=== PATIENT | male | born 1930 | race Caucasian/White ===

== ENCOUNTER → 2017-07-07 | Outpatient (CLI) | payer MEDICARE, OTHER ==
[~2017-07-07] VITALS: Ht 180.3 cm; Wt 92.5 kg
[~2017-07-07] MED LIST: CATHETER FLUSH 10 ML SYR IV PRN
[2017-07-07 12:55] VITALS: BP 167/97
--- NOTE | 2017-07-07 18:11 | STRESS TEST ---
DATE OF SERVICE: 07/07/2017 EXERCISE MYOVIEW STRESS TEST REFERRING PHYSICIAN: Dr. Jerman Park. Baseline heart rate is 68. Baseline blood pressure 167/97. Baseline EKG is sinus rhythm with no ischemic changes. In summary, the patient was injected with 10.44 mCi of technetium-99 Myoview and the resting images were obtained. Then, the patient started exercising with a baseline heart rate, blood pressure and EKG mentioned above. The patient was able to exercise for a total of 3 minutes on standard Lance protocol. With peak exercise level, EKG was showing minimal nondiagnostic changes. Blood pressure at peak was 193/91. During recovery, heart rate and blood pressure returned to baseline. EKG returned to baseline. The resting and stressed images were reviewed and compared in the short axis, horizontal long axis, and vertical long axis views. Review of the images showed diaphragmatic attenuation with mild decreased uptake involving the inferior wall and inferolateral wall with mild reversibility, there is significant increase in the stress score of 16. SSS and SDS of 6 probably due to the diaphragmatic attenuation. TID value 0.96. On the gated images, the left ventricle appeared to be in normal size with hypokinesia of the inferior wall. Calculated ejection fraction 49%. CONCLUSION: 1. Poor exercise tolerance. A total of 3 minutes on standard Lance protocol, total of 4.6 METS achieving 89% of maximum expected heart rate. 2. Nondiagnostic EKG changes with exercise, returned to baseline during recovery. 3. Mild hypertensive response to exercise, returned to baseline during recovery. 4. Diaphragmatic attenuation with mild ischemia involving the whole inferior wall and inferolateral wall. 5. Normal left ventricular size with mild hypokinesia of the inferior wall. Calculated ejection fraction 49%. Job ID: [id number] DocumentID: [id number] Dictated Date: 07/07/2017 14:38:08 Bottom Crane Operator Date: 07/07/2017 18:10:25 Dictated By: NUZHAT CORTES MD
== END ==
LOC: CARD 10:14
PROVIDERS: ATTEND Internal Medicine Cardiovascular Disease
DX: R07.89 Other chest pain (principal); I25.10 Atherosclerotic heart disease of native coronary artery without angina pectoris; I10 Essential (primary) hypertension; E78.2 Mixed hyperlipidemia; R06.09 Other forms of dyspnea
CPT/HCPCS: 78452; 93017; 93306

== ENCOUNTER 2017-07-10 08:33 | Day surgery (SDC) | payer MEDICARE ==
[2017-07-10] VITALS (8 sets, daily range): BP systolic 144–182; BP diastolic 80–94
[~2017-07-10] VITALS: Ht 180.3 cm; Wt 92.1 kg
[2017-07-10] MEDS ORDERED: ASPIRIN 81 MG CHEW (CHILDREN'S ASA) PO ONE (08:45)
[2017-07-10 08:52] LABS: BASOPHILS % (AUTO) 0 % (0-10); EOSINOPHILS # (AUTO) 0.2 10^3/uL (0.0-0.3); EOSINOPHILS % (AUTO) 4 % (0-10); HEMATOCRIT 41 % (40-54); HEMOGLOBIN 14.2 G/DL (13.3-17.7); LYMPHOCYTES # (AUTO) 1.2 X 10^3 (1.0-4.0); LYMPHOCYTES % (AUTO) 20 % (12-44); MEAN CORPUSCULAR HEMOGLOBIN 33 PG (25-34); MEAN CORPUSCULAR HGB CONC 35 G/DL (32-36); MEAN CORPUSCULAR VOLUME 94 FL (80-99); MONOCYTES # (AUTO) 0.4 X 10^3 (0.0-1.0); MONOCYTES % (AUTO) 7 % (0-12); NEUTROPHILS % (AUTO) 69 % (42-75); PLATELET COUNT 151 10^3/uL (130-400); RED BLOOD COUNT 4.36 10^6/uL (4.35-5.85); RED CELL DISTRIBUTION WIDTH 12.8 % (10.0-14.5); WHITE BLOOD COUNT 5.8 10^3/uL (4.3-11.0)
[2017-07-10 09:02] LABS: PROTHROMBIN TIME PATIENT 13.6 SEC (12.2-14.7)
[2017-07-10 09:12] LABS: ALANINE AMINOTRANSFERASE 26 U/L (0-55); ALKALINE PHOSPHATASE 77 U/L (40-136); BILIRUBIN,TOTAL 0.8 MG/DL (0.1-1.0); BUN/CREATININE RATIO 16; CALCIUM 9.5 MG/DL (8.5-10.1); CARBON DIOXIDE 23 MMOL/L (21-32); CHLORIDE 106 MMOL/L (98-107); CREATININE SERUM 1.15 MG/DL (0.60-1.30); GFR ESTIMATED 60; GLUCOSE 96 MG/DL (70-105); MAGNESIUM 2.2 MG/DL (1.8-2.4); POTASSIUM 4.2 MMOL/L (3.6-5.0); SODIUM 142 MMOL/L (135-145); TOTAL PROTEIN 7.3 GM/DL (6.4-8.2)
[2017-07-10 09:18] LABS: MYOGLOBIN SERUM 84.7 NG/ML (10.0-92.0)
--- NOTE | 2017-07-10 09:24 | Diagnostic Imaging Report ---
INDICATION: Chest pain COMPARISON: None available TECHNIQUE: Single frontal radiograph of the chest dated 07/10/2017. FINDINGS: The cardiac silhouette is upper limits of normal in size. No significant pulmonary vascular congestion. The lungs are clear. No pleural effusion. No pneumothorax. No acute osseous abnormality. IMPRESSION: Borderline cardiomegaly without overt congestive heart failure or additional superimposed acute cardiopulmonary abnormality. Dictated by: Dictated on workstation # [id number]
[2017-07-10] MEDS ORDERED: NITR0.4T39 SL (09:25)
[2017-07-10] MEDS ORDERED: ATOR40TA PO (09:29)
[2017-07-10] MEDS ORDERED: VITA150T PO (09:29)
[2017-07-10] MEDS ORDERED: LEVO100T7 PO (09:29)
[2017-07-10] MEDS ORDERED: OMEP20CA12 PO (09:29)
[2017-07-10] MEDS ORDERED: AMLO5TAB4 PO (09:29)
[2017-07-10] MEDS ORDERED: METO100T6 PO (09:29)
[2017-07-10] MEDS ORDERED: MULT-593 PO (09:29)
[2017-07-10] MEDS ORDERED: ASPI81TA55 PO (09:29)
[2017-07-10] MEDS ORDERED: TERA5CAP3 PO (09:29)
[2017-07-10] MEDS ORDERED: CHOL10003 PO (09:29)
--- NOTE | 2017-07-10 10:06 | ED Chest Pain ---
General Chief Complaint: Chest Pain Stated Complaint: CATH Nursing Triage Note: ARRIVED VIA AMB TO ROOM 05. COMPLAINS OF CHEST PAIN WITH SOA STARTING AT APX 0200. STATES HE TOOK X3 NITRO THAT DID HELP HIS PAIN. PT HAD A STRESS TEST ON WED AND IS SCHEDULED FOR A CATH ON WED. Nursing Sepsis Screen: No Definite Risk Source: patient Exam Limitations: no limitations History of Present Illness Date Seen by Provider: Jul 10, 2017 Time Seen by Provider: 08:37 Initial Comments Here with report of chest pain centrally that is associated with shortness of air. Started at about 2 a.m. and has persisted for a couple of hours. He did take 3 nitroglycerin and this did help his pain. Currently he is pain-free. He had abnormal stress test last Wednesday and scheduled for heart catheterization next Wednesday. Heart doctor is Dr. Ruiz. Reports taking his medications as directed. He did take aspirin yesterday but none this morning. States he was previously on blood thinners for a blood clot in his leg but had blood in his stool so he stopped those. Timing/Duration: 4-6 hours, changing over time, resolved prior to arrival Severity/Quality: moderate, pressure Location: central Radiation: no radiation Activities at Onset: sleep Prior CP/Workup: cardiac cath ASA po OPTICAL DISPENSER: Yes NTG SL OPTICAL DISPENSER: Yes Associated Symptoms: No abdominal pain, No back pain, No diaphoresis, No dizziness, No fatigue, No fever/chills, No nausea/vomiting, shortness of breath , No weakness Allergies and Home Medications Allergies Coded Allergies: No Known Allergies (Unverified Allergy, Unknown, 07/07/17) Home Medications Amlodipine Besylate 5 Mg Tablet, 5 MG PO DAILY, (Reported) Aspirin 81 Mg Tablet.dr, 81 MG PO, (Reported) Atorvastatin Calcium 40 Mg Tablet, 40 MG PO, (Reported) Cholecalciferol (Vitamin D3) 1,000 Unit Tablet, 1,000 UNIT PO, (Reported) Levothyroxine Sodium 100 Mcg Tablet, 100 MCG PO, (Reported) Metoprolol Succinate 100 Mg Tab.er.24h, 100 MG PO DAILY, (Reported) Multivitamin with Minerals 1 Each Tablet, 1 EACH PO, (Reported) Nitroglycerin 0.4 Mg Tab.subl, 0.4 MG SL UD PRN for CHEST PAIN, (Reported) Omeprazole 20 Mg Capsule.dr, 20 MG PO, (Reported) Terazosin HCl 5 Mg Capsule, 5 MG PO, (Reported) Vitamin B Complex & Vit C No.4 150 Mg Tablet, 150 MG PO, (Reported) Review of Systems Constitutional: see HPI, No chills, No fever EENTM: No Symptoms Reported Respiratory: See HPI Cardiovascular: See HPI Gastrointestinal: No Symptoms Reported Genitourinary: No Symptoms Reported All Other Systems Reviewed Negative Unless Noted: Yes Past Kupblfp-Tpepve-Jjppke Hx Patient Social History Alcohol Use: Denies Use Recreational Drug Use: No Smoking Status: Never a Smoker Recent Foreign Travel: No Contact w/Someone Who Travel: No Recent Infectious Disease Expo: No Recent Hopitalizations: No Surgeries History of Surgeries: Yes (CARDIAC CATH) Surgeries: Coronary Stent Respiratory History of Respiratory Disorde: No Cardiovascular History of Cardiac Disorders: Yes Cardiac Disorders: Deep Vein Thrombosis, Hypertension Neurological History of Neurological Disord: No Genitourinary History of Genitourinary Disor: No Gastrointestinal History of Gastrointestinal Di: No Musculoskeletal History of Musculoskeletal Dis: No Endocrine History of Endocrine Disorders: No HEENT History of HEENT Disorders: No Cancer History of Cancer: No Psychosocial History of Psychiatric Problem: No Blood Transfusions History of Blood Disorders: No Reviewed Nursing Assessment Reviewed/Agree w Nursing PMH: Yes Family Medical History Significant Family History: No Pertinent Family Hx Physical Exam Vital Signs Vital Signs - First Documented 07/10/17 08:33 Temp 98.0 Pulse 70 Resp 18 B/P (MAP) 164/89 (114) Pulse Ox 98 Capillary Refill : Less Than 3 Seconds General Appearance: No Apparent Distress, WD/WN HEENT: PERRL/EOMI, Pharynx Normal Neck: Non Tender, Supple Respiratory: Lungs Clear, Normal Breath Sounds Cardiovascular: Regular Rate, Rhythm, No Murmur, Normal Peripheral Pulses Gastrointestinal: Non Tender, Soft Extremity: Normal Range of Motion, Non Tender Neurologic/Psychiatric: Alert, Oriented x3 Skin: Normal Color, Warm/Dry Progress/Results/Core Measures Results/Orders Lab Results Laboratory Tests Test 07/10/17 08:45 Range/Units White Blood Count 5.8 4.3-11.0 10^3/uL Red Blood Count 4.36 4.35-5.85 10^6/uL Hemoglobin 14.2 13.3-17.7 G/DL Hematocrit 41 40-54 % Mean Corpuscular Volume 94 80-99 FL Mean Corpuscular Hemoglobin 33 25-34 PG Mean Corpuscular Hemoglobin Concent 35 32-36 G/DL Red Cell Distribution Width 12.8 10.0-14.5 % Platelet Count 151 130-400 10^3/uL Mean Platelet Volume 10.0 7.4-10.4 FL Neutrophils (%) (Auto) 69 42-75 % Lymphocytes (%) (Auto) 20 12-44 % Monocytes (%) (Auto) 7 0-12 % Eosinophils (%) (Auto) 4 0-10 % Basophils (%) (Auto) 0 0-10 % Neutrophils # (Auto) 4.0 1.8-7.8 X 10^3 Lymphocytes # (Auto) 1.2 1.0-4.0 X 10^3 Monocytes # (Auto) 0.4 0.0-1.0 X 10^3 Eosinophils # (Auto) 0.2 0.0-0.3 10^3/uL Basophils # (Auto) 0.0 0.0-0.1 10^3/uL Prothrombin Time 13.6 12.2-14.7 SEC INR Comment 1.0 0.8-1.4 Activated Partial Thromboplast Time 30 24-35 SEC Sodium Level 142 135-145 MMOL/L Potassium Level 4.2 3.6-5.0 MMOL/L Chloride Level 106 98-107 MMOL/L Carbon Dioxide Level 23 21-32 MMOL/L Anion Gap 13 5-14 MMOL/L Blood Urea Nitrogen 18 7-18 MG/DL Creatinine 1.15 0.60-1.30 MG/DL Estimat Glomerular Filtration Rate 60 BUN/Creatinine Ratio 16 Glucose Level 96 70-105 MG/DL Calcium Level 9.5 8.5-10.1 MG/DL Magnesium Level 2.2 1.8-2.4 MG/DL Total Bilirubin 0.8 0.1-1.0 MG/DL Aspartate Amino Transf (AST/SGOT) 34 5-34 U/L Alanine Aminotransferase (ALT/SGPT) 26 0-55 U/L Alkaline Phosphatase 77 40-136 U/L Myoglobin 84.7 10.0-92.0 NG/ML Troponin I < 0.30 <0.30 NG/ML Total Protein 7.3 6.4-8.2 GM/DL Albumin 4.0 3.2-4.5 GM/DL My Orders Orders - MELECIO MEADE MD Cbc With Automated Diff (07/10/17 08:38) Magnesium (07/10/17 08:38) Chest 1 View, Ap/Pa Only (07/10/17 08:38) Ekg Tracing (07/10/17 08:38) Cardiac Profile 1 (07/10/17 08:38) Comprehensive Metabolic Panel (07/10/17 08:38) Myoglobin Serum (07/10/17 08:38) Protime With Inr (07/10/17 08:38) Partial Thromboplastin Time (07/10/17 08:38) O2 (07/10/17 08:38) Monitor-Rhythm Ecg Trace Only (07/10/17 08:38) Lipid Panel (07/11/17 06:00) Aspirin Chewable Tablet (Baby Aspirin Ch (07/10/17 08:45) Saline Lock/Iv-Start (07/10/17 08:38) Medications Given in ED Current Medications Medications Dose Ordered Sig/Vinh Route Start Time Stop Time Status Last Admin Dose Admin Aspirin 324 mg ONCE ONCE PO 07/10/17 08:45 07/10/17 08:46 DC 07/10/17 08:53 324 MG Vital Signs/I&O Vital Sign - Last 12Hours 07/10/17 08:33 Temp 98.0 Pulse 70 Resp 18 B/P (MAP) 164/89 (114) Pulse Ox 98 Blood Pressure Mean: 114 Progress Note : Progress Note Seen and evaluated. IV, labs, EKG and chest x-ray ordered. ASA 324 mg by mouth ordered as he has not had aspirin today. No current chest pain so no nitroglycerin needed. Monitor patient. I did discuss the case with Dr. Ruiz at 0946. He will take him to the catheter lab this morning from the ER with admission to likely follow. Labs, EKG and chest x-ray do not show any significant findings. Remains pain free. Findings and concerns discussed with patient and family who agree. To go to catheter lab from the ER. Patient and family agree with plan. ECG Initial ECG Impression Date: Jul 10, 2017 Initial ECG Impression Time: 08:39 Initial ECG Rate: 67 Initial ECG Rhythm: Normal Sinus Initial ECG Impression: Normal Initial ECG Comparisson: No Previous ECG Available Comment Sinus rhythm with leftward axis. No evidence of ST elevation [place]. No previous available for comparison. Interpreted by me. Diagnostic Imaging Diagonstic Imaging: Xray Plain Films/CT/US/NM/MRI: chest Comments VIA [facility]. [place], [place] NAME: JAILENE WILKERSON [facility] REC#: [id number] PT STATUS: REG ER : 1930 PHYSICIAN: MELECIO MEADE MD ADMIT DATE: 07/10/17/ER Draft Date of Exam:07/10/17 CHEST 1 VIEW, AP/PA ONLY INDICATION: Chest pain COMPARISON: None available TECHNIQUE: Single frontal radiograph of the chest dated 07/10/2017. FINDINGS: The cardiac silhouette is upper limits of normal in size. No significant pulmonary vascular congestion. The lungs are clear. No pleural effusion. No pneumothorax. No acute osseous abnormality. IMPRESSION: Borderline cardiomegaly without overt congestive heart failure or additional superimposed acute cardiopulmonary abnormality. Dictated on workstation # [id number] Dict: 07/10/17 0913 Trans: 07/10/17 0924 [facility] [id number] Interpreted by: JOSEE ELLIS MD Electronically signed by: Reviewed: Reviewed by Me Departure Communication (Admissions) Time/Spoke to Admitting Phy: 09:46 Impression Impression: Primary Impression: Chest pain Qualified Codes: R07.9 - Chest pain, unspecified Disposition: ADMITTED INPATIENT Condition: Stable Admissions Decision to Admit Reason: Admit from ER (General) Decision to Admit/Date: Jul 10, 2017 Time/Decision to Admit Time: 09:46 Departure-Patient Inst. Referrals: OKSANA JOHNSON MD (PCP/Family) Primary Care Physician MELECIO MEADE MD Jul 10, 2017 10:06
[2017-07-10] MEDS ORDERED: fentaNYL INJECTION 100 MCG/2 ML AMP ONE (10:34)
[2017-07-10] MEDS ORDERED: HEParin (CATH LAB) 2,000 ML IV ONE (10:34)
[2017-07-10] MEDS ORDERED: LIDOCAINE 1% INJ 50 ML (XYLOCAINE) VIAL ONE (10:34)
[2017-07-10] MEDS ORDERED: MIDAZOLAM 5 MG/5 ML (VERSED) VIAL ONE (10:34)
[2017-07-10] MEDS ORDERED: NS IV 1000 ML 1,000 ML ONE (10:34)
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
--- NOTE | 2017-07-10 10:59 | Cardiac Procedure Note-CS/ASA ---
Pre-Procedure Note Pre-Op Procedure Note H&P Reviewed The H&P was reviewed, patient examined and no changes noted. Date H&P Reviewed: Jul 10, 2017 Time H&P Reviewed: 10:59 Conscious Sedation Pre-Proced Time Reviewed: :59 ASA Class: 3 Airway Mallampati Classification: ([place] appropriate class) I. II. III, IV Lungs Heart ASA score ASA 1: a normal healthy patient ASA 2: a patient with a mild systemic disease (mid diabetes, controlled hypertension, obesity x ASA 3: a patient with a severe systemic disease that limits activity (angina , COPD, prior Myocardial infarction) ASA 4: a patient with an incapacitating disease that is a constant threat to life (CHF, renal failure) ASA 5: a moribund patient not expected to survive 24 hrs. (ruptured aneurysm) ASA 6: a declared brain patient whose organs are being harvested. For emergent operations, add the letter E after the classification Grade 3 Sedation Plan: Analgesia, Amnesia, Plan communicated to team members, Discussed options with patient/fam, Discussed risks with patient/fam Note The patient is an appropriate candidate to undergo the planned procedure, sedation, and anesthesia. The patient immediately re-assessed prior to indication. NUZHAT CORTES MD Jul 10, 2017 10:59
[2017-07-10] MEDS ORDERED: NS IV 1000 ML 1,000 ML IV SCH (11:24)
--- NOTE | 2017-07-10 11:27 | Discharge Inst-Post CATH ---
Discharge Inst-CATH Post Cardiac Cath D/C Inst Follow Up/Plan Continue on isosorbide and use sublingual nitroglycerin as needed for chest pain Appointment with Dr. Ruiz's office in 2-4 weeks CARDIAC CATH DISCHARGE INSTRUCTIONS *Hold Metformin for 48 hours post heart cath. ACTIVITY * Go Home directly and rest. * Limit activity of the leg (or wrist if it was used) for 7 days including aerobics, swimming, jogging, bicycling, etc. * Restrict stair-climbing for 7 days if possible, if not, climb up with your non -cath leg, then bring together on the same step. * Avoid lifting, pushing, pulling or excessive movement of the affected extremity for 7 days. * Customary sexual activity may be resumed after 2 days-use caution not to use a position that strains or causes pain to the affected extremity. * No driving for 24 hours. * NO SMOKING. * Avoid straining for bowel movements for 7 days. * Gentle walking on level ground is allowed. * Returning to work will depend on the type of procedure and the results. Your doctor will discuss this with you. CALL YOUR DOCTOR FOR ANY OF THE FOLLOWING: *If bleeding from the puncture site occurs- Apply gentle pressure to site with clean cloth and call your doctor or EMS. * If a knot or lump forms under the skin, increases in size, or causes pain. * If bruising appears to be worsening or moving further down your leg instead of disappearing. * Temperature above 101 F. CARE OF YOUR GROIN INCISION; * Bruising or purple discoloration of the skin near the puncture site is common. * You may shower only, no bathtub bathing for 5 days. Be careful to avoid slipping as your leg may feel stiff. * If a closure device was used on your femoral artery, please see the attached guide regarding care of the device and your leg. * REMOVE the dressing from your groin the next day after your procedure in the shower. CARE OF YOUR WRIST INCISION; * Bruising or purple discoloration of the skin near the puncture site is common. * You may shower. * DO NOT submerge wrist. * Remove dressing in 24 hours. NUZHAT RUIZ MD Jul 10, 2017 11:27
[2017-07-10] MEDS ORDERED: PATIENT MAY USE OWN MEDS, ALL PO SCH (11:30)
--- NOTE | 2017-07-10 11:32 | Cardiac Cath Report ---
Cardiac Cath Report Physician (s)/Measurement Specialist (s) Physician NUZHAT CORTES MD Pre-Procedure Diagnosis Pre-Procedure Diagnosis: unstable angina Post-Procedure Note Procedure Start Date: Jul 10, 2017 Name of Procedure: Left heart catheterization Findings/Procedure Note PROCEDURE NOTE: After explaining the procedure to the patient, all pros and cons were explained, all questions were answered. The patient signed the consent and then she was placed on the cardiac catheterization laboratory. The patient was placed on the cardiac catheterization laboratory. Groin was prepped SL fashion local anesthesia was used. Sheath placed in the right femoral artery. Chely right and left catheter were used to access the coronary system. Chely right was used to access the left ventricular cavity. Left ventriculogram was done At the end of the procedure the sheath was removed. Closure device was used FINDINGS: Hemodynamics LV 146/11, end-diastolic pressure of 11 Aorta 141/69 mean of 97 ANATOMY: Left Main is free of obstructive disease Left Anterior Descending is tortuous artery with patent stent proximally, mild disease distally nonobstructive disease Left Circumflex is tortuous with mild disease no significant obstructive disease Right Coronory Artery is occluded proximally with collaterals filling the distal right from the left system LV Gram is normal in size with normal systolic function estimated ejection fraction 60 percent CONCLUSION: 1. 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 Tortuous left coronary system with patent stent in the proximal LAD, mild disease distally nonobstructive disease 3. Normal left ventricular size with systolic function estimated ejection fraction 60 percent DISCUSSION AND RECOMMENDATION: I will continue with medical therapy no intervention is recommended. Anesthesia Type: Conscious Sedation Estimated blood loss (mL): 10 ml Contrast Amount: 55 ml Total Radiation Dose: 491 mGy Post-Procedure Diagnosis Post-operative diagnosis: Unstable angina Coronary artery disease Hypertension Hyperlipidemia NUZHAT CORTES MD Jul 10, 2017 11:32
== END 2017-07-10 16:15 | disposition home or self-care (01) ==
LOC: EDUNIT# 08:33 → ER 08:35 → CATH 10:00 → 4TH 11:54 → CATH 16:15
PROVIDERS: ATTEND Internal Medicine Cardiovascular Disease
DX: I25.110 Atherosclerotic heart disease of native coronary artery with unstable angina pectoris (principal); I25.82 Chronic total occlusion of coronary artery; I10 Essential (primary) hypertension; E78.5 Hyperlipidemia, unspecified; E03.9 Hypothyroidism, unspecified; Z95.5 Presence of coronary angioplasty implant and graft; Z86.718 Personal history of other venous thrombosis and embolism; Z79.82 Long term (current) use of aspirin; Z79.899 Other long term (current) drug therapy
CPT/HCPCS: 36415; 71045; 80053; 83735; 83874; 84484; 85025; 85610; 85730; 93005; 93041; 93458

== ENCOUNTER 2017-09-23 06:16 | Emergency (ER) | payer MEDICARE ==
[~2017-09-23] VITALS: Ht 180.3 cm; Wt 92.1 kg
[~2017-09-23 06:16] MED LIST changes: +AMLO5TAB4 PO; +ASPI81TA55 PO; +ATOR40TA PO; -CATHETER FLUSH 10 ML SYR IV PRN; +CHOL10003 PO; +LEVO100T7 PO; +METO100T6 PO; +MULT-593 PO; +NITR0.4T39 SL; +OMEP20CA12 PO; +TERA5CAP3 PO; +VITA150T PO
--- NOTE | 2017-09-23 07:07 | ED General ---
General Stated Complaint: NOSE BLEED Source of Information: Patient Exam Limitations: No Limitations History of Present Illness Date Seen by Provider: September 23, 2017 Time Seen by Provider: 06:46 Initial Comments This 87-year-old gentleman presents to the emergency room with concerns about recurrent nosebleeds. His last nosebleed started early this morning and woke him from sleep. He also had a nosebleed yesterday that was dripping down the back of his throat into the posterior pharynx. He has had a few other nosebleeds over the past few weeks. He has been able to stop these nosebleeds with pressure alone. Patient had a notable hypertension upon assessment. He is very insistent that this is from white coat hypertension and that his blood pressures at home and at his primary care visits are normal. He states systolic blood pressures are usually in the 120s and 130s. He has no active bleeding at this time. He did take a blood pressure medication prior to coming to the ER today. He skipped his aspirin this morning. Patient seems mildly anxious Allergies and Home Medications Allergies Coded Allergies: No Known Allergies (Unverified Allergy, Unknown, 07/07/17) Home Medications Amlodipine Besylate 5 Mg Tablet, 5 MG PO DAILY, (Reported) Metoprolol Succinate 100 Mg Tab.er.24h, 100 MG PO DAILY, (Reported) Nitroglycerin 0.4 Mg Tab.subl, 0.4 MG SL UD PRN for CHEST PAIN, (Reported) Patient Home Medication List Home Medication List Reviewed: Yes Review of Systems Constitutional: no symptoms reported EENTM: see HPI Respiratory: no symptoms reported Cardiovascular: see HPI Gastrointestinal: no symptoms reported Genitourinary: no symptoms reported Musculoskeletal: no symptoms reported Skin: no symptoms reported Psychiatric/Neurological: No Symptoms Reported Hematologic/Lymphatic: No Symptoms Reported Past Uuadrsi-Vaqlwj-Zfbhno Hx Patient Social History Recent Foreign Travel: No Contact w/Someone Who Travel: No Recent Hopitalizations: No Past Medical History Surgeries: Yes (CARDIAC CATH) Coronary Stent Respiratory: No Cardiac: Yes Deep Vein Thrombosis, Hypertension Neurological: No Reproductive Disorders: No Genitourinary: No Gastrointestinal: No Musculoskeletal: No Endocrine: No HEENT: No Cancer: No Psychosocial: No Blood Disorders: No Family Medical History No Pertinent Family Hx Physical Exam Vital Signs Capillary Refill : General Appearance: No Apparent Distress, WD/WN HEENT: PERRL/EOMI, TMs Normal, Pharynx Normal, Other (drying blood in the left nostril with no active bleeding at this time) Neck: Normal Inspection Respiratory: Lungs Clear, Normal Breath Sounds, No Accessory Muscle Use, No Respiratory Distress Cardiovascular: Regular Rate, Rhythm, No Edema, No Murmur Neurologic/Psychiatric: Alert, Oriented x3, No Motor/Sensory Deficits, pot reliner II- XII Norm as Tested, Other (anxious) Skin: Normal Color, Warm/Dry Progress/Results/Core Measures Suspected Sepsis SIRS Temperature: Pulse: Respiratory Rate: Blood Pressure / Mean: Results/Orders Vital Signs/I&O Capillary Refill : Progress Note : Progress Note Since there was no active bleeding during the visit, no interventions were necessary. No changes were made to his blood pressure management as patient was insistent this was an isolated hypertensive incident and his blood pressures are usually normal. I'm deferring management of his blood pressure back to Dr. Johnson. We discussed the discharge instructions at length. Patient did seem to be somewhat reluctant to accept this treatment plan. He seemed anxious about the possibility of recurrent nosebleed. Departure Impression Primary Impression: Epistaxis Additional Impression: Hypertension Qualified Codes: I10 - Essential (primary) hypertension Disposition: HOME, SELF-CARE Condition: Stable Departure-Patient Inst. Decision time for Depature: 07:03 Referrals: RICHARD ARROYO MD, CHAD C MD (PCP/Family) Primary Care Physician Patient Instructions: High Blood Pressure (DC), Nosebleeds Add. Discharge Instructions: Follow-up with Dr. Johnson within the next week for a blood pressure check. You may check your blood pressure at home once or twice daily. Record those blood pressures and bring them to Dr. Johnson at your appointment. Inquire with Dr. Johnson about a referral to Dr. Arroyo as cauterization may be helpful to reduce your frequency of nosebleeds. Obtain Afrin (Oxymetazoline nasal) [id number]. If nosebleed returns, squirt 2-4 squirts in the affected side and apply direct pressure. If this does not stop your nosebleed within 20 minutes return to the ER. Skip your aspirin today and tomorrow. Contact Dr. Johnson if you have any further problems or concerns. Copy Copies To 1: OKSANA JOHNSON MD, JOSHUA T MD September 23, 2017 07:07
[2017-09-23 07:16] VITALS: BP 178/98
== END 2017-09-23 07:16 | disposition home or self-care (01) ==
LOC: EDUNIT# 06:16 → ER 06:19
DX: R04.0 Epistaxis (principal); I10 Essential (primary) hypertension; Z95.5 Presence of coronary angioplasty implant and graft; Z86.718 Personal history of other venous thrombosis and embolism
CPT/HCPCS: 99282

== ENCOUNTER 2017-10-12 13:02 | Outpatient (RCR) | payer MEDICARE | END 2017-11-29 11:04 | disposition home or self-care (01) | PROVIDERS: ATTEND Family Medicine | DX: M54.41 Lumbago with sciatica, right side (principal); R53.1 Weakness ==

== ENCOUNTER 2018-06-24 10:15 | Outpatient (RCR) | payer MEDICARE | END 2018-06-26 | disposition home or self-care (01) | LOC: CR 10:15 | PROVIDERS: ATTEND Internal Medicine Cardiovascular Disease | DX: I20.8 Other forms of angina pectoris (principal) | CPT/HCPCS: 93798 ==

== ENCOUNTER 2018-07-04 11:29 | Outpatient (RCR) | payer MEDICARE | END 2018-09-25 | disposition home or self-care (01) | LOC: CR 11:29 | PROVIDERS: ATTEND Internal Medicine Cardiovascular Disease | DX: I20.8 Other forms of angina pectoris (principal) | CPT/HCPCS: 93798 ==

== ENCOUNTER 2019-07-23 02:31 | Emergency (ER) | payer MEDICARE, OTHER ==
[~2019-07-23] VITALS: Ht 185 cm; Wt 90.9 kg
[~2019-07-23 02:31] MED LIST changes: -OMEP20CA12 PO; +OMEP20CA18 PO
[2019-07-23] MEDS ORDERED: fentaNYL INJECTION 100 MCG/2 ML AMP ONE (03:20)
[2019-07-23] MEDS ORDERED: ONDANSETRON 4 MG/2 ML (SDV) Z0FRAN ONE (03:21)
[2019-07-23] MEDS ORDERED: fentaNYL INJECTION 100 MCG/2 ML AMP IVP STA ×2 (03:24→04:07)
[2019-07-23] MEDS ORDERED: LACTATED RINGERS 1,000 ML IV STA (03:24)
[2019-07-23] MEDS ORDERED: ONDANSETRON 4 MG/2 ML (SDV) Z0FRAN IVP ONE (03:30)
[2019-07-23 03:49] LABS: BASOPHILS % (AUTO) 0 % (0-10); EOSINOPHILS # (AUTO) 0.1 10^3/uL (0.0-0.3); EOSINOPHILS % (AUTO) 1 % (0-10); HEMATOCRIT 34 % (40-54); HEMOGLOBIN 11.5 G/DL (13.3-17.7); LYMPHOCYTES # (AUTO) 1.2 X 10^3 (1.0-4.0); LYMPHOCYTES % (AUTO) 18 % (12-44); MEAN CORPUSCULAR HEMOGLOBIN 32 PG (25-34); MEAN CORPUSCULAR HGB CONC 33 G/DL (32-36); MEAN CORPUSCULAR VOLUME 96 FL (80-99); MEAN PLATELET VOLUME 10.5 FL (7.4-10.4); MONOCYTES # (AUTO) 0.4 X 10^3 (0.0-1.0); MONOCYTES % (AUTO) 6 % (0-12); NEUTROPHILS # (AUTO) 4.9 X 10^3 (1.8-7.8); NEUTROPHILS % (AUTO) 74 % (42-75); PLATELET COUNT 148 10^3/uL (130-400); RED CELL DISTRIBUTION WIDTH 13.2 % (10.0-14.5); WHITE BLOOD COUNT 6.6 10^3/uL (4.3-11.0)
[2019-07-23 04:21] LABS: ALBUMIN 3.8 GM/DL (3.2-4.5); BILIRUBIN,TOTAL 0.4 MG/DL (0.1-1.0); CALCIUM 9.5 MG/DL (8.5-10.1); CREATININE SERUM 1.41 MG/DL (0.60-1.30); POTASSIUM 3.8 MMOL/L (3.6-5.0); TOTAL PROTEIN 6.6 GM/DL (6.4-8.2)
--- NOTE | 2019-07-23 04:29 | ED Abdominal Pain ---
General Chief Complaint: Abdominal/GI Problems Stated Complaint: LLQ PAIN Nursing Triage Note: PT PRESENTS TO THE ED C/O LLQ ABD PAIN THAT ONSET AROUND 1999 LAST NIGHT. PT VERBALIZES SEVERE ABD. PAIN WITH NAUSEA. DENIES VOMITING. PT VERBALIZES A HX OF DIVERTICULOSIS Sepsis Screen: No Definite Risk Source of Information: Patient Exam Limitations: No Limitations History of Present Illness Date Seen by Provider: Jul 23, 2019 Time Seen by Provider: 03:25 Initial Comments Here with report of left lower quadrant abdominal pain that started about 8 PM last night and has persisted. Has had significant nausea but no vomiting. Does have history of diverticulosis but not diverticulitis. Has had similar episode previously that resolved on its own. Onset after dinner last night and has persisted. Reports pain to 9 out of 10. Denies blood in his stool. He has not had a bowel movement since chest today and is not passing gas. Does not have history of bowel surgery. Denies blood in his urine or stool. Timing/Duration: 12 Hours Severity/Quality: Moderate, Severe Location: LLQ Radiation: LUQ Activities at Onset: None Modifying Factors: Worsens With Movement Associated Symptoms: No Back Pain, No Chest Pain, No Fever/Chills, No Nausea/Vomiting, No Shortness of Air, No Weakness Allergies and Home Medications Allergies Coded Allergies: No Known Allergies (Unverified Allergy, Unknown, 07/07/17) Home Medications Amlodipine Besylate 5 Mg Tablet, 5 MG PO DAILY, (Reported) Metoprolol Succinate 100 Mg Tab.er.24h, 100 MG PO DAILY, (Reported) Nitroglycerin 0.4 Mg Tab.subl, 0.4 MG SL UD PRN for CHEST PAIN, (Reported) Patient Home Medication List Home Medication List Reviewed: Yes Review of Systems Review of Systems Constitutional: see HPI; No chills, No fever EENTM: No Symptoms Reported Respiratory: Denies Cough, Denies Shortness of Air Cardiovascular: Denies Chest Pain, Denies Edema, Denies Lightheadedness Gastrointestinal: Abdomen Distended, Abdominal Pain; Denies Diarrhea; Nausea; Denies Vomiting Genitourinary: No Symptoms Reported Musculoskeletal: no symptoms reported Skin: no symptoms reported All Other Systems Reviewed Negative Unless Noted: Yes Past Vpeddgk-Vcpqhn-Vlrqyl Hx Past Med/Social Hx: Reviewed Nursing Past Med/Soc Hx Patient Social History Alcohol Use: Denies Use Recreational Drug Use: No Smoking Status: Never a Smoker Recent Foreign Travel: No Contact w/Someone Who Travel: No Recent Infectious Disease Expo: No Recent Hopitalizations: No Immunizations Up To Date Tetanus Booster (TDap): Unknown PED Vaccines UTD: Yes Past Medical History Surgeries: Yes (CARDIAC CATH) Coronary Stent Respiratory: No Cardiac: Yes Deep Vein Thrombosis, Hypertension Neurological: No Reproductive Disorders: No Genitourinary: No Gastrointestinal: No Musculoskeletal: No Endocrine: No HEENT: No Cancer: No Psychosocial: No Integumentary: No Blood Disorders: No Family Medical History Reviewed Nursing Family Hx No Pertinent Family Hx Physical Exam Vital Signs Vital Signs - First Documented 07/23/19 03:13 Temp 36.3 Pulse 62 Resp 22 B/P (MAP) 169/85 (113) Pulse Ox 97 O2 Delivery Room Air Capillary Refill : Less Than 3 Seconds Height/Weight/BMI Height: 5'11.00" Weight: 203lbs. 0.0oz. 92.662351je; 26.00 BMI Method:Stated General Appearance: WD/WN, no apparent distress HEENT: PERRL/EOMI, pharynx normal Neck: full range of motion, supple Respiratory: lungs clear, normal breath sounds Cardiovascular: regular rate, rhythm, no murmur Peripheral Pulses: 2+ Dorsalis Pedis (R), 2+ Left Dors-Pedis (L), 2+ Radial Pulses (R), 2+ Radial Pulses (L) Gastrointestinal: soft, tenderness (left lower quadrant and to much lesser extent left upper quadrant) Extremities: non-tender, normal inspection Back: normal inspection, no CVA tenderness, no vertebral tenderness Pelvic: no cerv. motion tender, no masses Neurologic/Psychiatric: alert, oriented x 3 Skin: normal color, warm/dry Progress/Results/Core Measures Results/Orders Lab Results Laboratory Tests Test 07/23/19 03:20 07/23/19 04:40 Range/Units White Blood Count 6.6 4.3-11.0 10^3/uL Red Blood Count 3.59 L 4.35-5.85 10^6/uL Hemoglobin 11.5 L 13.3-17.7 G/DL Hematocrit 34 L 40-54 % Mean Corpuscular Volume 96 80-99 FL Mean Corpuscular Hemoglobin 32 25-34 PG Mean Corpuscular Hemoglobin Concent 33 32-36 G/DL Red Cell Distribution Width 13.2 10.0-14.5 % Platelet Count 148 130-400 10^3/uL Mean Platelet Volume 10.5 H 7.4-10.4 FL Neutrophils (%) (Auto) 74 42-75 % Lymphocytes (%) (Auto) 18 12-44 % Monocytes (%) (Auto) 6 0-12 % Eosinophils (%) (Auto) 1 0-10 % Basophils (%) (Auto) 0 0-10 % Neutrophils # (Auto) 4.9 1.8-7.8 X 10^3 Lymphocytes # (Auto) 1.2 1.0-4.0 X 10^3 Monocytes # (Auto) 0.4 0.0-1.0 X 10^3 Eosinophils # (Auto) 0.1 0.0-0.3 10^3/uL Basophils # (Auto) 0.0 0.0-0.1 10^3/uL Sodium Level 141 135-145 MMOL/L Potassium Level 3.8 3.6-5.0 MMOL/L Chloride Level 107 98-107 MMOL/L Carbon Dioxide Level 24 21-32 MMOL/L Anion Gap 10 5-14 MMOL/L Blood Urea Nitrogen 27 H 7-18 MG/DL Creatinine 1.41 H 0.60-1.30 MG/DL Estimat Glomerular Filtration Rate 47 BUN/Creatinine Ratio 19 Glucose Level 121 H 70-105 MG/DL Calcium Level 9.5 8.5-10.1 MG/DL Corrected Calcium 9.7 8.5-10.1 MG/DL Total Bilirubin 0.4 0.1-1.0 MG/DL Aspartate Amino Transf (AST/SGOT) 34 5-34 U/L Alanine Aminotransferase (ALT/SGPT) 27 0-55 U/L Alkaline Phosphatase 76 40-136 U/L C-Reactive Protein High Sensitivity 0.14 0.00-0.50 MG/DL Total Protein 6.6 6.4-8.2 GM/DL Albumin 3.8 3.2-4.5 GM/DL My Orders Orders - MELECIO MEADE MD Cbc With Automated Diff (07/23/19 03:24) Comprehensive Metabolic Panel (07/23/19 03:24) Hs C Reactive Protein (07/23/19 03:24) Ua Culture If Indicated (07/23/19 03:24) Ondansetron Injection (Zofran Injectio (07/23/19 03:30) Lactated Ringers (Lr 1000 Ml Iv Solution (07/23/19 03:24) Ed Iv/Invasive Line Start (07/23/19 03:24) Fentanyl Injection (Sublimaze Injection (07/23/19 03:24) Fentanyl Injection (Sublimaze Injection (07/23/19 03:20) Ondansetron Injection (Zofran Injectio (07/23/19 03:21) Fentanyl Injection (Sublimaze Injection (07/23/19 04:07) Ct Abdomen/Pelvis Wo (07/23/19 04:27) Medications Given in ED Current Medications Medications Dose Ordered Sig/Vinh Route Start Time Stop Time Status Last Admin Dose Admin Ondansetron HCl 4 mg ONCE ONCE IVP 07/23/19 03:30 07/23/19 03:31 DC 07/23/19 03:37 4 MG Vital Signs/I&O 07/23/19 03:13 Temp 36.3 Pulse 62 Resp 22 B/P (MAP) 169/85 (113) Pulse Ox 97 O2 Delivery Room Air Blood Pressure Mean: 113 Progress Progress Note : Progress Note Seen and evaluated. IV, labs, UA, LR 1 L bolus, Zofran 4 mg IV and fentanyl 50 g IV. 0430: Repeat fentanyl 50 g IV given for return of pain. CT abdomen and pelvis ordered without contrast due to slightly elevated serum creatinine and low GFR estimated. 0610: CT report shows hydronephrosis on the last with stone in the bladder. I talked with the patient more and he reports just before going to CT that he felt like something moved and his pain got better. I believe that this is likely the stone. UA studies also support this explanation. Patient agrees with that explanation. We will initiate outpatient antibiotics given his history of prostate problems and concerns about possible infection with stone. He has pain medicine at home. Discharged home with return precautions. Patient verbalize understanding instructions and agreement with plan. Diagnostic Imaging Diagonstic Imaging: CT Plain Films/CT/US/NM/MRI: abdomen, pelvis Comments [place], [place] NAME: JAILENE WILKERSON [facility] REC#: [id number] PT STATUS: REG ER : 1930 PHYSICIAN: MELECIO MEADE MD ADMIT DATE: 07/23/19/ER Draft Date of Exam:07/23/19 CT ABDOMEN/PELVIS WO PROCEDURE: CT abdomen and pelvis without contrast. TECHNIQUE: Multiple contiguous axial images were obtained through the abdomen and pelvis without the use of intravenous contrast. Auto Exposure Controls were utilized during the CT exam to meet ALARA standards for radiation dose reduction. INDICATION: Left lower quadrant pain and nausea. No prior examinations are available for comparison. FINDINGS: The heart size is normal. There are coronary artery calcifications. The liver is normal in size without focal lesions. Gallbladder is unremarkable. There is no biliary duct dilatation. Spleen is normal. Pancreas and adrenal glands are unremarkable. There is a cyst in the right kidney. There is also a cyst in the left kidney. There is left hydronephrosis. There is no stones seen along the expected course of the left ureter. There does, however, appear to be a 2 mm stone within the bladder. There is some atherosclerotic calcification of the aorta which is nonaneurysmal. Bowel gas pattern is nonspecific. Appendix is normal. There is no free air. There is no ascites. There are no focal inflammatory changes. There is diverticular disease without evidence of diverticulitis. There is prominence of the prostate. Bladder is normal. There are degenerative changes in the spine. IMPRESSION: Left hydronephrosis and hydroureter. There is, however, no evidence of a stone within the ureter itself. There is a stone within the bladder likely recently passed. Possibility of pyelonephritis cannot be excluded. Recommend clinical correlation Bilateral renal cysts Small hiatal hernia Coronary artery calcification Diverticular disease without evidence of diverticulitis Dictated on workstation # [id number] Dict: 07/23/19 0548 Trans: 07/23/19 0555 MEME [id number] Interpreted by: MARCEL RICK MD Electronically signed by: Departure Impression Primary Impression: Left ureteral stone Disposition: HOME, SELF-CARE Condition: Improved Departure-Patient Inst. Decision time for Depature: 06:18 Referrals: OKSANA JOHNSON MD (PCP/Family) Primary Care Physician Patient Instructions: Acute Abdomen (Belly Pain), Adult (DC), Kidney Stones (DC) Add. Discharge Instructions: All discharge instructions reviewed with patient and/or family. Voiced under standing. Take medications as directed. Follow-up with your doctor for recheck and further evaluation in a few days. Return for worse pain, fever, vomiting, weakness, breathing problems or other concerns as needed. You may take Tylenol/acetaminophen 1000 mg every 6 hours as needed for pain if you are not taking 1 of your hydrocodone tablets. Do not take both at the same time as they both have acetaminophen in them. You may take tramadol with the Tylenol if needed. Drink plenty of fluids. Scripts Cephalexin (Cephalexin) 500 Mg Tablet 500 MG PO BID, #14 TAB 0 Refills Prov: MELECIO MEADE MD 07/23/19 Copy Copies To 1: OKSANA JOHNSON MD, TIMOTHY D MD Jul 23, 2019 04:29
--- NOTE | 2019-07-23 04:51 | NUR ---
PT RETURN FROM CT IN STABLE CONDITION
[2019-07-23 05:54] LABS: BILIRUBIN,URINE NEGATIVE (NEGATIVE); CLARITY,URINE CLOUDY; COLOR,URINE YELLOW; GLUCOSE, URINE (UA) NEGATIVE (NEGATIVE); KETONES,URINE NEGATIVE (NEGATIVE); LEUKOCYTE ESTERASE ,URINE NEGATIVE (NEGATIVE); NITRITE,URINE NEGATIVE (NEGATIVE); PH,URINE 7.5 (5-9); PROTEIN,URINE 1+ (NEGATIVE)
--- NOTE | 2019-07-23 05:57 | Diagnostic Imaging Report ---
PROCEDURE: CT abdomen and pelvis without contrast. TECHNIQUE: Multiple contiguous axial images were obtained through the abdomen and pelvis without the use of intravenous contrast. Auto Exposure Controls were utilized during the CT exam to meet ALARA standards for radiation dose reduction. INDICATION: Left lower quadrant pain and nausea. No prior examinations are available for comparison. FINDINGS: The heart size is normal. There are coronary artery calcifications. The liver is normal in size without focal lesions. Gallbladder is unremarkable. There is no biliary duct dilatation. Spleen is normal. Pancreas and adrenal glands are unremarkable. There is a cyst in the right kidney. There is also a cyst in the left kidney. There is left hydronephrosis. There is no stones seen along the expected course of the left ureter. There does, however, appear to be a 2 mm stone within the bladder. There is some atherosclerotic calcification of the aorta which is nonaneurysmal. Bowel gas pattern is nonspecific. Appendix is normal. There is no free air. There is no ascites. There are no focal inflammatory changes. There is diverticular disease without evidence of diverticulitis. There is prominence of the prostate. Bladder is normal. There are degenerative changes in the spine. IMPRESSION: Left hydronephrosis and hydroureter. There is, however, no evidence of a stone within the ureter itself. There is a stone within the bladder likely recently passed. Possibility of pyelonephritis cannot be excluded. Recommend clinical correlation Bilateral renal cysts Small hiatal hernia Coronary artery calcification Diverticular disease without evidence of diverticulitis Dictated by: Dictated on workstation # [id number]
[2019-07-23 06:09] LABS: RBC,URINE >100 /HPF
[2019-07-23 06:10] LABS: WBC,URINE 0-2 /HPF
[2019-07-23 06:11] LABS: BACTERIA,URINE TRACE /HPF
[2019-07-23] MEDS ORDERED: CEPH500T PO (06:21)
[2019-07-23 06:28] VITALS: BP 133/87
== END 2019-07-23 06:32 | disposition home or self-care (01) ==
LOC: EDUNIT# 02:31 → ER 02:34
DX: N13.2 Hydronephrosis with renal and ureteral calculous obstruction (principal); I10 Essential (primary) hypertension; Z95.5 Presence of coronary angioplasty implant and graft
CPT/HCPCS: 36415; 74176; 80053; 81000; 85025; 86141; 96361; 96374; 96375; 96376

== ENCOUNTER 2019-11-06 06:13 | Observation (INO) | payer MEDICARE ==
[~2019-11-06] VITALS: Ht 180.3 cm; Wt 88.6 kg
[~2019-11-06 06:13] MED LIST changes: +CEPH500T PO
--- NOTE | 2019-11-06 06:41 | ED Chest Pain ---
General Chief Complaint: Chest Pain Stated Complaint: CP, SOB Source: patient Exam Limitations: no limitations History of Present Illness Date Seen by Provider: Nov 06, 2019 Time Seen by Provider: 06:23 Initial Comments Patient presents to ER by private conveyance with chief complaint he was awoken at 4:00 with some substernal chest pain that is dull. He took 2 doses of nitroglycerin and the pain mostly went away but migrated more to his right lower chest. He says he had a lot of gas which is unusual for him. He did not take any antacids or gas medicine. He does have a history of GERD and takes omeprazole daily. He has not taken it yet. They can bring daily drinker. He has a history of stent and follows with Dr. Ruiz. He denies a history of smoking or diabetes. He does have hyperlipidemia and hypertension, coronary disease. He denies any shortness of breath fever cough chills recent travel or exposures to sick people. No history of abdominal surgeries. Years ago he had a EGD demonstrating an ulcer but he's had no problems with it since. Echocardiogram by Dr. Ruiz 2018 shows EF of 50-55% with mild aortic regurgitation. Cardiac catheterization by Dr. Ruiz 2018 shows chronic total occlusion of the right coronary artery with collateral filling the distal right from the left system. Portable chest left coronary system with 8 and stent in the proximal LAD mild disease distally nonobstructive. Normal left ventricular function and systolic EF of 60% History of coronary artery disease, hypertension, hyperlipidemia. Allergies and Home Medications Allergies Coded Allergies: No Known Allergies (Unverified Allergy, Unknown, 07/07/17) Home Medications Amlodipine Besylate 5 Mg Tablet, 5 MG PO DAILY, (Reported) Cephalexin 500 Mg Tablet, 500 MG PO BID Prescribed by: MELECIO MEADE on 07/23/19 0621 Metoprolol Succinate 100 Mg Tab.er.24h, 100 MG PO DAILY, (Reported) Nitroglycerin 0.4 Mg Tab.subl, 0.4 MG SL UD PRN for CHEST PAIN, (Reported) Patient Home Medication List Home Medication List Reviewed: Yes Review of Systems Review of Systems Constitutional: No chills, No diaphoresis EENTM: No Blurred Vision, No Double Vision Respiratory: Denies Cough, Denies Shortness of Air Cardiovascular: See HPI, Chest Pain; Denies Edema, Denies Irregular Heart Rate, Denies Lightheadedness Gastrointestinal: Denies Abdominal Pain, Denies Constipated, Denies Diarrhea, Denies Nausea, Denies Rectal Bleeding, Denies Vomiting Genitourinary: Denies Burning, Denies Discharge Musculoskeletal: No no symptoms reported, No back pain, No joint pain Skin: No pruritus, No rash All Other Systems Reviewed Negative Unless Noted: Yes Past Marjkrc-Aojxvi-Iepqqw Hx Patient Social History Alcohol Use: Denies Use Recreational Drug Use: No Smoking Status: Never a Smoker 2nd Hand Smoke Exposure: No Recent Foreign Travel: No Contact w/Someone Who Travel: No Recent Hopitalizations: No Immunizations Up To Date Tetanus Booster (TDap): Unknown PED Vaccines UTD: Yes Date of Influenza Vaccine: Apr 22, 2020 Past Medical History Surgeries: Yes (CARDIAC CATH) Coronary Stent Respiratory: No Cardiac: Yes Deep Vein Thrombosis, Hypertension Neurological: No Reproductive Disorders: No Genitourinary: No Gastrointestinal: No Musculoskeletal: No Endocrine: No HEENT: No Cancer: No Psychosocial: No Integumentary: No Blood Disorders: No Family Medical History No Pertinent Family Hx Physical Exam Vital Signs Vital Signs - First Documented 11/06/19 06:28 Temp 36.7 Pulse 73 Resp 18 B/P (MAP) 160/97 (118) Pulse Ox 99 O2 Delivery Room Air Capillary Refill : Height, Weight, BMI Height: 5'11.00" Weight: 203lbs. 0.0oz. 92.080245gp; 26.00 BMI Method:Stated General Appearance: WD/WN, Anxious HEENT: PERRL/EOMI, Pharynx Normal, Moist Mucous Membranes Neck: Full Range of Motion, Normal Inspection Respiratory: Chest Non Tender, Lungs Clear, Normal Breath Sounds, No Accessory Muscle Use, No Respiratory Distress Cardiovascular: Regular Rate, Rhythm, No Edema, Normal Peripheral Pulses Gastrointestinal: Normal Bowel Sounds, Soft, Tenderness (reproduces his symptoms my direct palpation of his epigastric and right upper quadrant region. Negative for Smith sign and psoas sign or McBurney's point tenderness.) Extremity: Normal Capillary Refill, Normal Inspection, No Calf Tenderness, No Pedal Edema Neurologic/Psychiatric: Alert, Oriented x3 Skin: Normal Color, Warm/Dry Progress/Results/Core Measures Results/Orders Lab Results Laboratory Tests Test 11/06/19 06:25 Range/Units White Blood Count 5.6 4.3-11.0 10^3/uL Red Blood Count 3.72 L 4.35-5.85 10^6/uL Hemoglobin 12.0 L 13.3-17.7 G/DL Hematocrit 36 L 40-54 % Mean Corpuscular Volume 96 80-99 FL Mean Corpuscular Hemoglobin 32 25-34 PG Mean Corpuscular Hemoglobin Concent 34 32-36 G/DL Red Cell Distribution Width 13.0 10.0-14.5 % Platelet Count 151 130-400 10^3/uL Mean Platelet Volume 10.3 7.4-10.4 FL Neutrophils (%) (Auto) 62 42-75 % Lymphocytes (%) (Auto) 29 12-44 % Monocytes (%) (Auto) 7 0-12 % Eosinophils (%) (Auto) 2 0-10 % Basophils (%) (Auto) 0 0-10 % Neutrophils # (Auto) 3.5 1.8-7.8 X 10^3 Lymphocytes # (Auto) 1.6 1.0-4.0 X 10^3 Monocytes # (Auto) 0.4 0.0-1.0 X 10^3 Eosinophils # (Auto) 0.1 0.0-0.3 10^3/uL Basophils # (Auto) 0.0 0.0-0.1 10^3/uL Prothrombin Time 14.1 12.2-14.7 SEC INR Comment 1.0 0.8-1.4 Activated Partial Thromboplast Time 31 24-35 SEC Sodium Level 141 135-145 MMOL/L Potassium Level 4.1 3.6-5.0 MMOL/L Chloride Level 110 H 98-107 MMOL/L Carbon Dioxide Level 20 L 21-32 MMOL/L Anion Gap 11 5-14 MMOL/L Blood Urea Nitrogen 26 H 7-18 MG/DL Creatinine 1.41 H 0.60-1.30 MG/DL Estimat Glomerular Filtration Rate 47 BUN/Creatinine Ratio 18 Glucose Level 96 70-105 MG/DL Calcium Level 9.1 8.5-10.1 MG/DL Corrected Calcium 9.3 8.5-10.1 MG/DL Magnesium Level 2.1 1.6-2.4 MG/DL Total Bilirubin 0.5 0.1-1.0 MG/DL Aspartate Amino Transf (AST/SGOT) 32 5-34 U/L Alanine Aminotransferase (ALT/SGPT) 22 0-55 U/L Alkaline Phosphatase 72 40-136 U/L Myoglobin 80.4 10.0-92.0 NG/ML Troponin I < 0.028 <0.028 NG/ML B-Type Natriuretic Peptide 50.3 <100.0 PG/ML Total Protein 6.7 6.4-8.2 GM/DL Albumin 3.7 3.2-4.5 GM/DL My Orders Orders - ZAYDA LEON Ekg Tracing (11/06/19 06:15) Continuous Ekg Monitoring (11/06/19 06:15) Cbc With Automated Diff (11/06/19 06:34) Magnesium (11/06/19 06:34) Chest 1 View, Ap/Pa Only (11/06/19 06:34) Comprehensive Metabolic Panel (11/06/19 06:34) Myoglobin Serum (11/06/19 06:34) Protime With Inr (11/06/19 06:34) Partial Thromboplastin Time (11/06/19 06:34) O2 (11/06/19 06:34) Lipid Panel (11/07/19 06:00) Ed Iv/Invasive Line Start (11/06/19 06:34) BNP (11/06/19 06:34) Troponin I (11/06/19 06:34) Nitroglycerin 0.4 Mg Btl 25's (Nitrostat (11/06/19 06:45) Aspirin Chewable Tablet (Baby Aspirin Ch (11/06/19 06:45) Pantoprazole Injection (Protonix Injecti (11/06/19 06:45) Lidocaine 2% Viscous 15 Ml (Xylocaine Vi (11/06/19 06:45) Antacid Suspension (Mylanta Suspension (11/06/19 06:45) Metoprolol Succinate (Xl) Tab (Toprol Xl (11/06/19 09:45) Amlodipine Tablet (Norvasc Tablet) (11/06/19 09:45) Terazosin Capsule (Hytrin Capsule) (11/06/19 09:45) Hydralazine Injection (Apresoline Inject (11/06/19 09:45) Medications Given in ED Current Medications Medications Dose Ordered Sig/Vinh Route Start Time Stop Time Status Last Admin Dose Admin Al Hydrox/Mg Hydrox/Simethicone 30 ml ONCE ONCE PO 11/06/19 06:45 11/06/19 06:46 DC 11/06/19 07:09 30 ML Aspirin 324 mg ONCE ONCE PO 11/06/19 06:45 11/06/19 06:46 DC 11/06/19 07:08 324 MG Lidocaine HCl 15 ml ONCE ONCE PO 11/06/19 06:45 11/06/19 06:46 DC 11/06/19 07:09 15 ML Pantoprazole 40 mg ONCE ONCE IV 11/06/19 06:45 11/06/19 06:46 DC 11/06/19 07:08 40 MG Vital Signs/I&O 11/06/19 11/06/19 06:28 06:53 Temp 36.7 Pulse 73 Resp 18 B/P (MAP) 160/97 (118) Pulse Ox 99 O2 Delivery Room Air Room Air Progress Progress Note #1: Time: 06:41 Progress Note Plan to give him some aspirin and a GI cocktail. Initial EKG unremarkable. Progress Note #2: Time: 09:25 Progress Note Patient says the GI cocktail did not help his symptoms either. He says he's about the same as before not really describing his pain just pressure on the right side of his chest, mild. Progress Note #3: Time: 09:39 Progress Note After the nitroglycerin the patient's blood pressure began to creep back up in the 150 systolic. It just shot up to over 203. So we rechecked it on the other arm was 173 systolic. Plan to give him some hydralazine and restart some of his morning meds, Toprol-XL 100 mg, amlodipine 5 mg, terazosin 2 mg. Initial ECG Impression Date: Nov 06, 2019 Initial ECG Impression Time: 06:17 Initial ECG Rate: 80 Initial ECG Rhythm: Normal Sinus Initial ECG Intervals: Normal Initial ECG Impression: Normal, Nonspecific Changes (PACs) Initial ECG Comparisson: Unchanged Comment Normal sinus rhythm without clinically relevant ST changes. Diagnostic Imaging Diagonstic Imaging: Xray Plain Films/CT/US/NM/MRI: chest (1v) Comments NAME: JESSICA WILKERSONWHITNEY Prater MED REC#: [id number] PT STATUS: REG ER : 1930 PHYSICIAN: ZAYDA LEON MD ADMIT DATE: 11/06/19/ER Draft Date of Exam:11/06/19 CHEST 1 VIEW, AP/PA ONLY INDICATION: Chest pain. COMPARISON: 07/10/2017 TECHNIQUE: Single radiograph of the chest dated 11/06/2019. FINDINGS: Borderline cardiomegaly is again noted, stable from prior examination. No significant pulmonary vascular congestion. The lungs are clear of focal pulmonary opacity. No pleural effusion. No pneumothorax. No acute osseous abnormality. IMPRESSION: Stable examination without acute cardiopulmonary abnormality. Dictated on workstation # [id number] Dict: 11/06/19 0707 Trans: 11/06/19 0710 [id number] Interpreted by: JOSEE ELLIS MD Electronically signed by: Reviewed: Reviewed by Me Departure Communication (Admissions) Time/Spoke to Admitting Phy: 09:36 Discussed the case with Dr. Jerman Johnson and he agrees to observe the patient for serial troponins for hypertensive emergency. Time/Spoke to Consulting Phy: 09:30 Discussed the case with Dr. Ruiz agrees with observation and serial troponins. Impression Primary Impression: Unstable angina Additional Impression: Hypertensive emergency without congestive heart failure Disposition: ADMITTED INPATIENT Condition: Stable Admissions Decision to Admit Reason: Admit from ER (General) Decision to Admit/Date: Nov 06, 2019 Time/Decision to Admit Time: 09:30 Departure-Patient Inst. Referrals: JERMAN JOHNSON MD (PCP/Family) Primary Care Physician ZAYDA LEON Nov 06, 2019 06:41
--- OUTSIDE RECORDS SUMMARY | 2019-11-06 06:43 | XMS REPORT | Continuity of Care Document ---
Author Organization Unknown Address Unknown Phone Unavailable Allergies Active Description Code Type Severity Reaction Onset Reported/Identified Relationship to Patient Clinical Status Yes No Known Allergies [id number] Drug Allergy Unknown N/A 07/07/2017 Medications There is no data. Problems Date Dx Coded Attending Type Code Diagnosis Diagnosed By 04/22/1103 OKSANA JOHNSON MD Ot M54. 41 LUMBAGO WITH SCIATICA, RIGHT SIDE 04/22/1103 OKSANA JOHNSON MD Ot R53. 1 WEAKNESS 07/08/2017 NUZHAT CORTES MD Ot E78. 2 MIXED HYPERLIPIDEMIA 07/08/2017 NUZHAT CORTES MD Ot I10 ESSENTIAL (PRIMARY) HYPERTENSION 07/08/2017 NUZHAT CORTES MD Ot I25. 10 ATHSCL HEART DISEASE OF [place] CORONARY 07/08/2017 NUZHAT CORTES MD Ot R06. 09 OTHER FORMS OF DYSPNEA 07/08/2017 NUZHAT CORTES MD Ot R07. 89 OTHER CHEST PAIN 07/10/2017 NUZHAT CORTES MD Ot E03. 9 HYPOTHYROIDISM, UNSPECIFIED 07/10/2017 NUZHAT CORTES MD Ot E78. 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 5 PRESENCE OF CORONARY ANGIOPLASTY IMPLANT 07/19/2017 NUZHAT CORTES MD Ot E03. 9 HYPOTHYROIDISM, UNSPECIFIED 07/19/2017 NUZHAT CORTES MD Ot E78. 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 5 PRESENCE OF CORONARY ANGIOPLASTY IMPLANT 07/28/2017 NUZHAT CORTES MD Ot E78. 2 MIXED HYPERLIPIDEMIA 07/28/2017 NUZHAT CORTES MD Ot I10 ESSENTIAL (PRIMARY) HYPERTENSION 07/28/2017 NUZHAT CORTES MD Ot I25. 10 ATHSCL HEART DISEASE OF [place] CORONARY 07/28/2017 NUZHAT CORTES MD Ot R06. 09 OTHER FORMS OF DYSPNEA 07/28/2017 NUZHAT CORTES MD Ot R07. 89 OTHER CHEST PAIN 08/23/2017 NUZHAT CORTES MD Ot E78. 2 MIXED HYPERLIPIDEMIA 08/23/2017 NUZHAT CORTES MD Ot I10 ESSENTIAL (PRIMARY) HYPERTENSION 08/23/2017 NUZHAT CORTES MD Ot I25. 10 ATHSCL HEART DISEASE OF [place] CORONARY 08/23/2017 NUZHAT CORTES MD Ot R06. 09 OTHER FORMS OF DYSPNEA 08/23/2017 NUZHAT CORTES MD Ot R07. 89 OTHER CHEST PAIN 09/16/2017 ELIZABETH L[place], OKSANA Lopez Ot M47.816 SPONDYLOSIS W/O MYELOPATHY OR RADICULOPA 09/23/2017 ONEIDA CARRILLO MD Ot I10 ESSENTIAL (PRIMARY) HYPERTENSION 09/23/2017 ONEIDA CARRILLO MD Ot R04.0 EPISTAXIS 09/23/2017 ONEIDA CARRILLO MD Ot Z86.718 PERSONAL HISTORY OF OTHER VENOUS THROMBO 09/23/2017 ONEIDA CARRILLO MD Ot Z95.5 PRESENCE OF CORONARY ANGIOPLASTY IMPLANT 09/27/2017 ONEIDA CARRILLO MD Ot I10 ESSENTIAL (PRIMARY) HYPERTENSION 09/27/2017 ONEIDA CARRILLO MD Ot R04.0 EPISTAXIS 09/27/2017 ONEIDA CARRILLO MD, Ot Z86.718 PERSONAL HISTORY OF OTHER VENOUS THROMBO 09/27/2017 ONEIDA CARRILLO MD Ot Z95.5 PRESENCE OF CORONARY ANGIOPLASTY IMPLANT 09/27/2017 OKSANA JOHNSON MD Ot M47.816 SPONDYLOSIS W/O MYELOPATHY OR RADICULOPA 10/06/2017 OKSANA JOHNSON MD Ot M54. 41 LUMBAGO WITH SCIATICA, RIGHT SIDE 10/06/2017 OKSANA JOHNSON MD Ot R53. 1 WEAKNESS 11/03/2017 OKSANA JOHNSON MD Ot M54. 41 LUMBAGO WITH SCIATICA, RIGHT SIDE 11/03/2017 OKSANA JOHNSON MD Ot R53. 1 WEAKNESS 11/29/2017 OKSANA JOHNSON MD Ot M54. 41 LUMBAGO WITH SCIATICA, RIGHT SIDE 11/29/2017 OKSANA JOHNSON MD Ot R53. 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 2 MIXED HYPERLIPIDEMIA 07/23/2019 NUZHAT CORTES MD Ot I10 ESSENTIAL (PRIMARY) HYPERTENSION 07/23/2019 NUZHAT CORTES MD Ot I25. 10 ATHSCL HEART DISEASE OF [place] CORONARY 07/23/2019 NUZHAT CORTES MD Ot R06. 09 OTHER FORMS OF DYSPNEA 07/23/2019 NUZHAT CORTES MD Ot R07. 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 2 MIXED HYPERLIPIDEMIA 07/23/2019 NUZHAT CORTES MD Ot I10 ESSENTIAL (PRIMARY) HYPERTENSION 07/23/2019 NUZHAT CORTES MD Ot I25. 10 ATHSCL HEART DISEASE OF [place] CORONARY 07/23/2019 NUZHAT CORTES MD Ot R06. 09 OTHER FORMS OF DYSPNEA 07/23/2019 NUZHAT CORTES MD Ot R07. 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 07/23/2019 MELECIO MEADE MD Ot I10 ESSENTIAL (PRIMARY) HYPERTENSION 07/23/2019 MELECIO MEADE MD Ot N13.2 HYDRONEPHROSIS WITH RENAL AND URETERAL C 07/23/2019 MELECIO MEADE MD Ot R10.32 LEFT LOWER QUADRANT PAIN 07/23/2019 MELECIO MEADE MD Ot Z95.5 PRESENCE OF CORONARY ANGIOPLASTY IMPLANT 07/29/2019 MELECIO MEADE MD Ot I10 ESSENTIAL (PRIMARY) HYPERTENSION 07/29/2019 MELECIO MEADE MD Ot N13.2 HYDRONEPHROSIS WITH RENAL AND URETERAL C 07/29/2019 MELECIO MEADE MD Ot R10.32 LEFT LOWER QUADRANT PAIN 07/29/2019 MELECIO MEADE MD Ot Z95.5 PRESENCE OF CORONARY ANGIOPLASTY IMPLANT Procedures There is no data. Results Test Result Range Complete blood count (CBC) with automate d white blood cell (WBC) differential - 07/10/17 08:45 Blood leukocytes automated count (number/volume) 5.8 10*3/uL 4.3-11.0 Blood erythrocytes automated count (number/volume) 4.36 10*6/uL 4.35-5.85 Venous blood hemoglobin measurement (mass/volume) 14.2 g/dL 13.3-17.7 Blood hematocrit (volume fraction) 41 % 40-54 Automated erythrocyte mean corpuscular volume 94 [ foz_us] 80-99 Automated erythrocyte mean corpuscular h emoglobin (mass per erythrocyte) 33 pg 25-34 Automated erythrocyte mean corpuscular h emoglobin concentration measurement (mass/volume) 35 g/dL 32-36 Automated erythrocyte distribution width ratio 12. 8 % 10.0- 14.5 Automated blood platelet count (count/volume) 151 10*3/uL 130-400 Automated blood platelet mean volume measurement 10.0 [foz_us] 7.4-10.4 Automated blood neutrophils/100 leukocytes 69 % 42-75 Automated blood lymphocytes/100 leukocytes 20 % 12-44 Blood monocytes/100 leukocytes 7 % 0-12 Automated blood eosinophils/100 leukocytes 4 % 0-10 Automated blood basophils/100 leukocytes 0 % 0-10 Blood neutrophils automated count (number/volume) 4.0 10*3 1.8-7.8 Blood lymphocytes automated count (number/volume) 1.2 10*3 1.0-4.0 Blood monocytes automated count (number/volume) 0. 4 10*3 0.0-1.0 Automated eosinophil count 0.2 10*3/uL 0 .0-0.3 Automated blood basophil count (count/volume) 0.0 10*3/uL 0.0-0.1 PT panel in platelet poor plasma by coag ulation assay - 07/10/17 08:45 Prothrombin time (PT) in platelet poor plasma by coagu lation assay 13.6 s 12.2-14.7 INR in platelet poor plasma or blood by coagulation as say 1.0 0.8-1.4 Activated partial thromboplastin time (a PTT) in platelet poor plasma bycoagulation assay - 07/10/17 08:45 Activated partial thromboplastin time (a PTT) in platelet poor plasma bycoagulation assay 30 s 24-35 Comprehensive metabolic panel - 07/10/17 08:45 Serum or plasma sodium measurement (moles/volume) 142 mmol/L 135-145 Serum or plasma potassium measurement (moles/volume) 4.2 mmol/L 3.6-5.0 Serum or plasma chloride measurement (moles/volume) 106 mmol/L 98-107 Carbon dioxide 23 mmol/L 21-32 Serum or plasma anion gap determination (moles/volume) 13 mmol/L 5-14 Serum or plasma urea nitrogen measurement (mass/volume ) 18 mg/dL 7-18 Serum or plasma creatinine measurement (mass/volume) 1.15 mg/dL 0.60-1.30 Serum or plasma urea nitrogen/creatinine mass ratio 16 NRG Serum or plasma creatinine measurement w ith calculation of estimated glomerular filtration rate 60 NRG Serum or plasma glucose measurement (mass/volume) 96 mg/dL 70-105 Serum or plasma calcium measurement (mass/volume) 9.5 mg/dL 8.5-10.1 Serum or plasma total bilirubin measurement (mass/volu me) 0.8 mg/dL 0.1-1.0 Serum or plasma alkaline phosphatase adriel surement (enzymatic activity/volume) 77 U/L 40-136 Serum or plasma aspartate aminotransfera se measurement (enzymatic activity/volume) 34 U/L 5-34 Serum or plasma alanine aminotransferase measurement (enzymatic activity/volume) 26 U/L 0-55 Serum or plasma protein measurement (mass/volume) 7.3 g/dL 6.4-8.2 Serum or plasma albumin measurement (mass/volume) 4.0 g/dL 3.2-4.5 Magnesium - 07/10/17 08:45 Magnesium 2.2 mg/dL 1.8-2.4 Serum or plasma troponin i.cardiac measu rement (mass/volume) - 07/10/17 08:45 Serum or plasma troponin i.cardiac measurement (mass/v olume) < ng/mL <0.30 Myoglobin, serum - 07/10/17 08:45 Myoglobin, serum 84.7 ng/mL 10.0-92.0 Complete blood count (CBC) with automate d white blood cell (WBC) differential - 07/23/19 03:20 Blood leukocytes automated count (number/volume) 6.6 10*3/uL 4.3-11.0 Blood erythrocytes automated count (number/volume) 3.59 10*6/uL 4.35-5.85 Venous blood hemoglobin measurement (mass/volume) 11.5 g/dL 13.3-17.7 Blood hematocrit (volume fraction) 34 % 40-54 Automated erythrocyte mean corpuscular volume 96 [ foz_us] 80-99 Automated erythrocyte mean corpuscular h emoglobin (mass per erythrocyte) 32 pg 25-34 Automated erythrocyte mean corpuscular h emoglobin concentration measurement (mass/volume) 33 g/dL 32-36 Automated erythrocyte distribution width ratio 13. 2 % 10.0- 14.5 Automated blood platelet count (count/volume) 148 10*3/uL 130-400 Automated blood platelet mean volume measurement 10.5 [foz_us] 7.4-10.4 Automated blood neutrophils/100 leukocytes 74 % 42-75 Automated blood lymphocytes/100 leukocytes 18 % 12-44 Blood monocytes/100 leukocytes 6 % 0-12 Automated blood eosinophils/100 leukocytes 1 % 0-10 Automated blood basophils/100 leukocytes 0 % 0-10 Blood neutrophils automated count (number/volume) 4.9 10*3 1.8-7.8 Blood lymphocytes automated count (number/volume) 1.2 10*3 1.0-4.0 Blood monocytes automated count (number/volume) 0. 4 10*3 0.0-1.0 Automated eosinophil count 0.1 10*3/uL 0 .0-0.3 Automated blood basophil count (count/volume) 0.0 10*3/uL 0.0-0.1 Comprehensive metabolic panel - 07/23/19 03:20 Serum or plasma sodium measurement (moles/volume) 141 mmol/L 135-145 Serum or plasma potassium measurement (moles/volume) 3.8 mmol/L 3.6-5.0 Serum or plasma chloride measurement (moles/volume) 107 mmol/L 98-107 Carbon dioxide 24 mmol/L 21-32 Serum or plasma anion gap determination (moles/volume) 10 mmol/L 5-14 Serum or plasma urea nitrogen measurement (mass/volume ) 27 mg/dL 7-18 Serum or plasma creatinine measurement (mass/volume) 1.41 mg/dL 0.60-1.30 Serum or plasma urea nitrogen/creatinine mass ratio 19 NRG Serum or plasma creatinine measurement w ith calculation of estimated glomerular filtration rate 47 NRG Serum or plasma glucose measurement (mass/volume) 121 mg/dL 70-105 Serum or plasma calcium measurement (mass/volume) 9.5 mg/dL 8.5-10.1 Serum or plasma total bilirubin measurement (mass/volu me) 0.4 mg/dL 0.1-1.0 Serum or plasma alkaline phosphatase adriel surement (enzymatic activity/volume) 76 U/L 40-136 Serum or plasma aspartate aminotransfera se measurement (enzymatic activity/volume) 34 U/L 5-34 Serum or plasma alanine aminotransferase measurement (enzymatic activity/volume) 27 U/L 0-55 Serum or plasma protein measurement (mass/volume) 6.6 g/dL 6.4-8.2 Serum or plasma albumin measurement (mass/volume) 3.8 g/dL 3.2-4.5 CALCIUM CORRECTED 9.7 mg/dL 8.5-10.1 Serum or plasma C reactive protein measu rement (mass/volume) - 07/23/19 03:20 Serum or plasma C reactive protein measurement (mass/v olume) 0.14 mg/dL 0.00-0.50 Complete urinalysis with reflex to cultu re - 07/23/19 04:40 Urine color determination YELLOW NRG Urine clarity determination CLOUDY NR G Urine pH measurement by test strip 7.5 5-9 Specific gravity of urine by test strip 1.020 1.016-1.022 Urine protein assay by test strip, semi-quantitative 1+ NEGATIVE Urine glucose detection by automated test strip NE GATIVE NEGATIVE Erythrocytes detection in urine sediment by light micr oscopy 3+ NEGATIVE Urine ketones detection by automated test strip NE GATIVE NEGATIVE Urine nitrite detection by test strip NEGATIVE NEGATIVE Urine total bilirubin detection by test strip NEGA TIVE NEGATIVE Urine urobilinogen measurement by automated test strip (mass/volume) 0.2 mg/dL < = 1.0 Urine leukocyte esterase detection by dipstick NEG ATIVE NEGATIVE Automated urine sediment erythrocyte cou nt by microscopy (number/high power field) > [HPF] NRG Automated urine sediment leukocyte count by microscopy (number/high power field) [HPF] NRG Bacteria detection in urine sediment by light microsco py TRACE NRG Crystals detection in urine sediment by light microsco py NONE NRG Casts detection in urine sediment by light microscopy NONE NRG Mucus detection in urine sediment by light microscopy SMALL NRG Complete urinalysis with reflex to culture NO NRG Encounters ACCT No. Visit Date/Time Discharge Status Pt. Type Provider Facility Loc./Unit Complaint [id number] 07/23/2019 02:34:00 06:32:00 DIS Emergency MELECIO MEADE MD Via [facility] ER LLQ PAIN [id number] 09/26/2018 10:00:00 23:59:59 CLS Preadmit NUZHAT CORTES MD [facility] CR STABLE ANGINA [id number] 07/04/2018 11:29:00 00:01:00 DIS Outpatient NUZHAT CORTES MD [facility] CR STABLE ANGINA [id number] 06/24/2018 10:15:00 00:01:00 DIS Outpatient NUZHAT CORTES MD [facility] CR STABLE ANGINA [id number] 10/12/2017 13:02:00 018 11:04:00 DIS Outpatient OKSANA JOHNSON MD [facility] REHAB ACUTE LOW BACK PAIN; SC IATICA; WEAKNESS [id number] 09/23/2017 06:19:00 018 07:16:00 DIS Emergency ONEIDA CARRILLO MD [facility] ER NOSE BLEED [id number] 09/15/2017 14:16:00 23:59:59 CLS Outpatient OKSANA JOHNSON MD [facility] RAD M54.5 [id number] 07/10/2017 10:00:00 018 16:15:00 DIS Outpatient NUZHAT CORTES MD [facility] CATH CATH [id number] 07/07/2017 10:14:00 23:59:59 CLS Outpatient NUZHAT CORTES MD [facility] CARD R07.89,I25.10
[2019-11-06 06:45] LABS: BASOPHILS % (AUTO) 0 % (0-10); EOSINOPHILS # (AUTO) 0.1 10^3/uL (0.0-0.3); EOSINOPHILS % (AUTO) 2 % (0-10); HEMATOCRIT 36 % (40-54); LYMPHOCYTES # (AUTO) 1.6 X 10^3 (1.0-4.0); LYMPHOCYTES % (AUTO) 29 % (12-44); MEAN CORPUSCULAR HEMOGLOBIN 32 PG (25-34); MEAN CORPUSCULAR HGB CONC 34 G/DL (32-36); MEAN CORPUSCULAR VOLUME 96 FL (80-99); MEAN PLATELET VOLUME 10.3 FL (7.4-10.4); MONOCYTES # (AUTO) 0.4 X 10^3 (0.0-1.0); MONOCYTES % (AUTO) 7 % (0-12); NEUTROPHILS # (AUTO) 3.5 X 10^3 (1.8-7.8); NEUTROPHILS % (AUTO) 62 % (42-75); PLATELET COUNT 151 10^3/uL (130-400); WHITE BLOOD COUNT 5.6 10^3/uL (4.3-11.0)
[2019-11-06] MEDS ORDERED: PANTOPRAZOLE 40 MG (PROTONIX) VIAL IV ONE (06:45)
[2019-11-06] MEDS ORDERED: ASPIRIN 81 MG CHEW (CHILDREN'S ASA) PO ONE (06:45)
[2019-11-06] MEDS ORDERED: ANTACID SUSP 30 ML UDC (MYLANTA) PO ONE (06:45)
[2019-11-06] MEDS ORDERED: LIDOCAINE 2% VISCOUS 15 ML UDC PO ONE (06:45)
[2019-11-06 06:52] LABS: PROTHROMBIN TIME PATIENT 14.1 SEC (12.2-14.7)
[2019-11-06 06:56] LABS: ALBUMIN 3.7 GM/DL (3.2-4.5); BILIRUBIN,TOTAL 0.5 MG/DL (0.1-1.0); CALCIUM 9.1 MG/DL (8.5-10.1); CREATININE SERUM 1.41 MG/DL (0.60-1.30); MAGNESIUM 2.1 MG/DL (1.6-2.4); POTASSIUM 4.1 MMOL/L (3.6-5.0); TOTAL PROTEIN 6.7 GM/DL (6.4-8.2)
[2019-11-06] MEDS: NITROGLYCERIN 0.4 MG SL TABS BTL 25'S SL PRN ×2 (07:09→09:00)
--- NOTE | 2019-11-06 07:11 | Diagnostic Imaging Report ---
INDICATION: Chest pain. COMPARISON: 07/10/2017 TECHNIQUE: Single radiograph of the chest dated 11/06/2019. FINDINGS: Borderline cardiomegaly is again noted, stable from prior examination. No significant pulmonary vascular congestion. The lungs are clear of focal pulmonary opacity. No pleural effusion. No pneumothorax. No acute osseous abnormality. IMPRESSION: Stable examination without acute cardiopulmonary abnormality. Dictated by: Dictated on workstation # [id number]
--- NOTE | 2019-11-06 09:03 | NUR ---
Recieved report from DEEPALI King to assumem pt care at this time.
[2019-11-06] MEDS ORDERED: hydrALAZINE (APESOLINE) 20 MG/ML VIAL IV ONE (09:45)
[2019-11-06] MEDS ORDERED: TERAZOSIN 2 MG (HYTRIN) CAP PO ONE (09:45)
[2019-11-06] MEDS ORDERED: meTOprolol SUCCINATE 100 MG (TOPROL XL) TAB PO ONE (09:45)
[2019-11-06] MEDS ORDERED: amLODIPine 5 MG (NORVASC) TAB PO ONE (09:45)
[2019-11-06 10:56] VITALS: BP 172/87
[2019-11-06] MEDS ORDERED: CATHETER FLUSH 10 ML SYR IV PRN (11:15)
[2019-11-06] MEDS ORDERED: morphine INJ 4 MG/ML 1 ML (VIAL/SYRINGE) IV PRN (11:15)
[2019-11-06] MEDS ORDERED: ONDANSETRON 4 MG/2 ML (SDV) Z0FRAN IV PRN (11:15)
[2019-11-06] MEDS ORDERED: ANTACID SUSP 30 ML UDC (MYLANTA) PO PRN (11:15)
[2019-11-06] MEDS ORDERED: ACETAMINOPHEN 500 MG TAB (TYLENOL) PO PRN (11:15)
[2019-11-06] MEDS ORDERED: NITROGLYCERIN 0.4 MG SL TABS BTL 25'S SL PRN (11:15)
--- OUTSIDE RECORDS SUMMARY | 2019-11-06 11:36 | XMS REPORT | Continuity of Care Document ---
Author Organization Unknown Address Unknown Phone Unavailable Allergies Active Description Code Type Severity Reaction Onset Reported/Identified Relationship to Patient Clinical Status Yes No Known Allergies [id number] Drug Allergy Unknown N/A 07/07/2017 Medications There [...] Ot I25. 10 ATHSCL HEART DISEASE OF [place] CORONARY 07/08/2017 NUZHAT CORTES MD Ot R06. 09 OTHER FORMS OF DYSPNEA 07/08/2017 NUZHAT CORTES MD Ot R07. 89 OTHER CHEST PAIN 07/10/2017 NUZHAT CORTES MD Ot E03. 9 HYPOTHYROIDISM, UNSPECIFIED 07/10/2017 NUZHAT CORTES MD Ot E78. 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 5 PRESENCE OF CORONARY ANGIOPLASTY IMPLANT 07/19/2017 NUZHAT CORTES MD Ot E03. 9 HYPOTHYROIDISM, UNSPECIFIED 07/19/2017 NUZHAT CORTES MD Ot E78. 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 5 PRESENCE OF CORONARY ANGIOPLASTY IMPLANT 07/28/2017 NUZHAT CORTES MD Ot E78. 2 MIXED HYPERLIPIDEMIA 07/28/2017 NUZHAT CORTES MD Ot I10 ESSENTIAL (PRIMARY) HYPERTENSION 07/28/2017 NUZHAT CORTES MD Ot I25. 10 ATHSCL HEART DISEASE OF [place] CORONARY 07/28/2017 NUZAHT CORTES MD Ot R06. 09 OTHER FORMS OF DYSPNEA 07/28/2017 NUZHAT CORTES MD Ot R07. 89 OTHER CHEST PAIN 08/23/2017 NUZHAT CORTES MD Ot E78. 2 MIXED HYPERLIPIDEMIA 08/23/2017 NUZHAT CORTES MD Ot I10 ESSENTIAL (PRIMARY) HYPERTENSION 08/23/2017 NUZHAT CORTES MD Ot I25. 10 ATHSCL HEART DISEASE OF [place] CORONARY 08/23/2017 NUZHAT CORTES MD Ot R06. [...] 41 LUMBAGO WITH SCIATICA, RIGHT SIDE 11/03/2017 OSKANA JOHNSON MD Ot R53. 1 WEAKNESS 11/29/2017 [...] Ot I25. 10 ATHSCL HEART DISEASE OF [place] CORONARY 07/23/2019 NUZHAT CORTES MD Ot R06. [...] Ot I25. 10 ATHSCL HEART DISEASE OF [place] CORONARY 07/23/2019 NUZHAT CORTES MD Ot R06. 09 OTHER FORMS OF DYSPNEA 07/23/2019 NUZHAT CORTES MD Ot R07. 89 OTHER CHEST PAIN 07/23/2019 OKSAAN JOHNSON MD C Ot M47.816 SPONDYLOSIS W/O [...] urinalysis with reflex to culture NO NRG Complete blood count (CBC) with automate d white blood cell (WBC) differential - 11/06/19 06:25 Blood leukocytes automated count (number/volume) 5.6 10*3/uL 4.3-11.0 Blood erythrocytes automated count (number/volume) 3.72 10*6/uL 4.35-5.85 Venous blood hemoglobin measurement (mass/volume) 12.0 g/dL 13.3-17.7 Blood hematocrit (volume fraction) 36 % 40-54 Automated erythrocyte mean corpuscular volume 96 [ foz_us] 80-99 Automated erythrocyte mean corpuscular h emoglobin (mass per erythrocyte) 32 pg 25-34 Automated erythrocyte mean corpuscular h emoglobin concentration measurement (mass/volume) 34 g/dL 32-36 Automated erythrocyte distribution width ratio 13. 0 % 10.0- 14.5 Automated blood platelet count (count/volume) 151 10*3/uL 130-400 Automated blood platelet mean volume measurement 10.3 [foz_us] 7.4-10.4 Automated blood neutrophils/100 leukocytes 62 % 42-75 Automated blood lymphocytes/100 leukocytes 29 % 12-44 Blood monocytes/100 leukocytes 7 % 0-12 Automated blood eosinophils/100 leukocytes 2 % 0-10 Automated blood basophils/100 leukocytes 0 % 0-10 Blood neutrophils automated count (number/volume) 3.5 10*3 1.8-7.8 Blood lymphocytes automated count (number/volume) 1.6 10*3 1.0-4.0 Blood monocytes automated count (number/volume) 0. 4 10*3 0.0-1.0 Automated eosinophil count 0.1 10*3/uL 0 .0-0.3 Automated blood basophil count (count/volume) 0.0 10*3/uL 0.0-0.1 PT panel in platelet poor plasma by coag ulation assay - 11/06/19 06:25 Prothrombin time (PT) in platelet poor plasma by coagu lation assay 14.1 s 12.2-14.7 INR in platelet poor plasma or blood by coagulation as say 1.0 0.8-1.4 Activated partial thromboplastin time (a PTT) in platelet poor plasma bycoagulation assay - 11/06/19 06:25 Activated partial thromboplastin time (a PTT) in platelet poor plasma bycoagulation assay 31 s 24-35 Comprehensive metabolic panel - 11/06/19 06:25 Serum or plasma sodium measurement (moles/volume) 141 mmol/L 135-145 Serum or plasma potassium measurement (moles/volume) 4.1 mmol/L 3.6-5.0 Serum or plasma chloride measurement (moles/volume) 110 mmol/L 98-107 Carbon dioxide 20 mmol/L 21-32 Serum or plasma anion gap determination (moles/volume) 11 mmol/L 5-14 Serum or plasma urea nitrogen measurement (mass/volume ) 26 mg/dL 7-18 Serum or plasma creatinine measurement (mass/volume) 1.41 mg/dL 0.60-1.30 Serum or plasma urea nitrogen/creatinine mass ratio 18 NRG Serum or plasma creatinine measurement w ith calculation of estimated glomerular filtration rate 47 NRG Serum or plasma glucose measurement (mass/volume) 96 mg/dL 70-105 Serum or plasma calcium measurement (mass/volume) 9.1 mg/dL 8.5-10.1 Serum or plasma total bilirubin measurement (mass/volu me) 0.5 mg/dL 0.1-1.0 Serum or plasma alkaline phosphatase adriel surement (enzymatic activity/volume) 72 U/L 40-136 Serum or plasma aspartate aminotransfera se measurement (enzymatic activity/volume) 32 U/L 5-34 Serum or plasma alanine aminotransferase measurement (enzymatic activity/volume) 22 U/L 0-55 Serum or plasma protein measurement (mass/volume) 6.7 g/dL 6.4-8.2 Serum or plasma albumin measurement (mass/volume) 3.7 g/dL 3.2-4.5 CALCIUM CORRECTED 9.3 mg/dL 8.5-10.1 Magnesium - 11/06/19 06:25 Magnesium 2.1 mg/dL 1.6-2.4 Myoglobin, serum - 11/06/19 06:25 Myoglobin, serum 80.4 ng/mL 10.0-92.0 Serum or plasma troponin i.cardiac measu rement (mass/volume) - 11/06/19 06:25 Serum or plasma troponin i.cardiac measurement (mass/v olume) < ng/mL <0.028 Serum or plasma lithium measurement (mol es/volume) - 11/06/19 06:25 BNP PT 50.3 pg/mL <100.0 Encounters ACCT No. Visit Date/Time Discharge Status Pt. Type Provider Facility Loc./Unit Complaint [id number] 07/23/2019 02:34:00 06:32:00 DIS Emergency MELECIO MEADE MD [facility] ER LLQ PAIN [id number] 09/26/2018 10:00:00 23:59:59 CLS Preadmit NUZHAT CORTES MD [facility] CR STABLE ANGINA [id number] 07/04/2018 11:29:00 00:01:00 DIS Outpatient NUZHAT CORTES MD [facility] CR STABLE ANGINA [id number] 06/24/2018 10:15:00 00:01:00 DIS Outpatient NUZHAT CORTES MD [facility] CR STABLE ANGINA [id number] 10/12/2017 13:02:00 018 11:04:00 DIS Outpatient OKSANA JOHNSON MD [facility] REHAB ACUTE LOW BACK PAIN; SC IATICA; WEAKNESS [id number] 09/23/2017 06:19:00 07:16:00 DIS Emergency ONEIDA CARRILLO MD [facility] ER NOSE BLEED [id number] 09/15/2017 14:16:00 23:59:59 CLS Outpatient OKSANA JOHNSON MD [facility] RAD M54.5 [id number] 07/10/2017 10:00:00 018 16:15:00 DIS Outpatient NUZHAT CORTES MD [facility] CATH CATH [id number] 07/07/2017 10:14:00 23:59:59 CLS Outpatient NUZHAT CORTES MD Via [facility] CARD R07.89,I25.10 [id number] 11/06/2019 06:46:00 Document Registration
[2019-11-06 11:40] VITALS: BP 172/87
[2019-11-06 11:56] VITALS: BP 179/92
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
[2019-11-06] MEDS ORDERED: CATHETER FLUSH 10 ML SYR IV SCH (14:00)
[2019-11-06] MEDS ORDERED: ATOR20TA66 PO (14:06)
[2019-11-06] MEDS ORDERED: TERA10CA3 PO (14:06)
[2019-11-06] MEDS ORDERED: ASPI-983 PO (14:06)
[2019-11-06] MEDS ORDERED: MTP25TSR PO (14:06)
[2019-11-06] MEDS ORDERED: ISOS30TA3 PO (14:06)
--- NOTE | 2019-11-06 14:15 | NUR ---
SPOKE WITH THE PT AND WENT THRU THE EXT MED HISTORY TO COMPLETE THE MED REC PT TAKES MEDICATIONS HOW THEY ARE LISTED ON THE EXT MED HISTORY OTC MEDS: ASPIRIN [employer]
--- NOTE | 2019-11-06 14:58 | Short Stay Summary ---
History of Present Illness History of Present Illness Reason for visit/HPI 89 yo M presenting to ER with chest pain that didn't go away. It started at 4am. Denies any radiation of pain. He received nitroglycerin which help relieve the majority of his chest pain. Serial Troponins were <0.028 and since his chest pain resolved he was discharged to home with close follow up. Dr. Ruiz was consulted. Patient has chronic kidney disease stage III which his creatinine was at his baseline. Will follow up on his blood pressures in outpatient setting as he also notes low blood pressures so he has been taking his BP medication every other day. Date of Admission Nov 06, 2019 at 09:52 Date of Discharge November 06, 2019 Time Seen by Provider: 12:35 Attending Physician Jerman Park MD Admitting Physician Jerman Park MD Consult Allergies and Home Medications Allergies Coded Allergies: No Known Allergies (Unverified Allergy, Unknown, 07/07/17) Home Medications Amlodipine Besylate 5 Mg Tablet, 5 MG PO DAILY, (Reported) Aspirin 81 Mg Tablet.dr, 81 MG PO DAILY, (Reported) Atorvastatin Calcium 20 Mg Tablet, 20 MG PO HS, (Reported) Isosorbide Mononitrate 30 Mg Tab.er.24h, 30 MG PO 1400, (Reported) Levothyroxine Sodium 100 Mcg Tablet, 100 MCG PO DAILY, (Reported) Metoprolol Succinate 25 Mg Tab.er.24h, 25 MG PO 1400, (Reported) Multivitamin with Minerals 1 Each Tablet, 1 EACH PO DAILY, (Reported) Omeprazole 20 Mg Capsule.dr, 20 MG PO DAILY, (Reported) Terazosin HCl 10 Mg Capsule, 10 MG PO HS, (Reported) Patient Home Medication List Home Medication List Reviewed: Yes Past Fgvalpm-Dcuszd-Rgvxji Hx Patient Social History Marrital Status: Employed/Student: retired Alcohol Use: Denies Use Recreational Drug Use: No Smoking Status: Never a Smoker 2nd Hand Smoke Exposure: No Recent Foreign Travel: No Contact w/other who traveled: No Recent Hopitalizations: No Recent Infectious Disease Expo: No Immunizations Up To Date Tetanus Booster (TDap): Unknown Pediatric: Yes Date of Influenza Vaccine: Apr 22, 2020 Surgeries Yes (CARDIAC CATH) Coronary Stent Respiratory No Cardiovascular Yes Deep Vein Thrombosis, Hypertension Neurological No Reproductive System Hx Reproductive Disorders: No Genitourinary No Gastrointestinal No Musculoskeletal No Endocrine History of Endocrine Disorders: No HEENT History of HEENT Disorders: No Cancer No Psychosocial History of Psychiatric Problem: No Integumentary History of Skin or Integumenta: No Blood Transfusions History of Blood Disorders: No Family Medical History Significant Family History: No Pertinent Family Hx Review of Systems Constitutional: No chills, No diaphoresis EENTM: No hearing loss, No blurred vision, No double vision Respiratory: No cough, No dyspnea on exertion Cardiovascular: chest pain Gastrointestinal: No RUQ, No LUQ, No RLQ, No LLQ Musculoskeletal: No back pain; joint pain Skin: No change in color, No change in hair/nails Psychiatric/Neurological: Denies Anxiety, Denies Depressed, Denies Emotional Pr oblems Physical Exam Vital Signs Vital Signs - First Documented 11/06/19 06:28 Temp 36.7 Pulse 73 Resp 18 B/P (MAP) 160/97 (118) Pulse Ox 99 O2 Delivery Room Air Capillary Refill : Less Than 3 Seconds Height, Weight, BMI Height: 5'11.00" Weight: 203lbs. 0.0oz. 92.816954ct; 27.25 BMI Method:Stated General Appearance: No Apparent Distress, WD/WN HEENT: PERRL/EOMI Neck: Non Tender, Supple Respiratory: Chest Non Tender, Lungs Clear, Normal Breath Sounds Cardiovascular: Regular Rate, Rhythm Gastrointestinal: Non Tender, Soft Rectal: Deferred Back: No CVA Tenderness Extremity: Normal Capillary Refill, Normal Range of Motion, Non Tender Neurologic/Psychiatric: Alert, Oriented x3 Skin: Warm/Dry Clinical Quality Measures AMI/AHF: ASA po Prior to arrival: No DVT/VTE Risk/Contraindication: Risk Factor Score Per Nursin RFS Level Per Nursing on Admit: 4+=Very High Short Stay Diagnosis Discharge Diagnosis-Short Stay Admission Diagnosis: chest pain chronic kidney disease, stage III BPH with LUTS Final Discharge Diagnosis: chest pain chronic kidney disease, stage III BPH with LUTS Conclusion Labs Laboratory Tests 11/06/19 06:25: White Blood Count 5.6, Red Blood Count 3.72L, Hemoglobin 12.0L, Hematocrit 36L, Mean Corpuscular Volume 96, Mean Corpuscular Hemoglobin 32, Mean Corpuscular Hemoglobin Concent 34, Red Cell Distribution Width 13.0, Platelet Count 151, Mean Platelet Volume 10.3, Neutrophils (%) (Auto) 62, Lymphocytes (%) (Auto) 29, Monocytes (%) (Auto) 7, Eosinophils (%) (Auto) 2, Basophils (%) (Auto) 0, Neutrophils # (Auto) 3.5, Lymphocytes # (Auto) 1.6, Monocytes # (Auto) 0.4, Eosinophils # (Auto) 0.1, Basophils # (Auto) 0.0, Prothrombin Time 14.1, INR Comment 1.0, Activated Partial Thromboplast Time 31, Sodium Level 141, Potassium Level 4.1, Chloride Level 110H, Carbon Dioxide Level 20L, Anion Gap 11, Blood Urea Nitrogen 26H, Creatinine 1.41H, Estimat Glomerular Filtration Rate 47, BUN/Creatinine Ratio 18, Glucose Level 96, Calcium Level 9.1, Corrected Calcium 9.3, Magnesium Level 2.1, Total Bilirubin 0.5, Aspartate Amino Transf (AST/SGOT) 32, Alanine Aminotransferase (ALT/SGPT) 22, Alkaline Phosphatase 72, Myoglobin 80.4, Troponin I < 0.028, B-Type Natriuretic Peptide 50.3, Total Protein 6.7, Albumin 3.7 11/06/19 11:53: Troponin I < 0.028 11/06/19 13:40: Troponin I < 0.028 Conclusion/Plan Chest pain resolved- EKG and serial troponins were monitored- discharged to home. Added flomax to his medication regimen because he feels like he urinates too many times overnight. JERMAN PARK MD Nov 06, 2019 14:58
[2019-11-06 15:43] VITALS: BP 138/84
[2019-11-06 16:51] VITALS: BP 138/84
[2019-11-07] MEDS ORDERED: LEVOTHYROXINE 100 MCG (LEVOTHROID) TAB PO SCH (06:30)
[2019-11-07] MEDS ORDERED: ASPIRIN E.C. 81 MG (ECOTRIN) TAB PO SCH (09:00)
== END 2019-11-06 16:30 | disposition home or self-care (01) ==
LOC: EDUNIT# 06:13 → ER 06:14 → CSD 09:52
PROVIDERS: ADMIT Family Medicine; ATTEND Family Medicine
DX: I25.110 Atherosclerotic heart disease of native coronary artery with unstable angina pectoris (principal); I16.1 Hypertensive emergency; I12.9 Hypertensive chronic kidney disease with stage 1 through stage 4 chronic kidney disease, or unspecified chronic kidney disease; I35.1 Nonrheumatic aortic (valve) insufficiency; I65.29 Occlusion and stenosis of unspecified carotid artery; I82.409 Acute embolism and thrombosis of unspecified deep veins of unspecified lower extremity; N18.3 Chronic kidney disease, stage 3 (moderate); K21.9 Gastro-esophageal reflux disease without esophagitis; E78.5 Hyperlipidemia, unspecified; G89.29 Other chronic pain; M54.9 Dorsalgia, unspecified; E03.9 Hypothyroidism, unspecified; Z79.82 Long term (current) use of aspirin; Z79.899 Other long term (current) drug therapy
CPT/HCPCS: 36415; 71045; 80053; 83735; 83874; 83880; 84484; 85025; 85610; 85730; 93005

== ENCOUNTER → 2020-01-05 | Outpatient (CLI) | payer MEDICARE ==
[~2020-01-05] MED LIST changes: +ASPI-983 PO; +ATOR20TA66 PO; +ISOS30TA3 PO; +MTP25TSR PO; +TERA10CA3 PO
[2020-01-05 09:53] LABS: ALBUMIN 3.9 GM/DL (3.2-4.5); BILIRUBIN,TOTAL 0.7 MG/DL (0.1-1.0); CALCIUM 9.6 MG/DL (8.5-10.1); CREATININE SERUM 1.26 MG/DL (0.60-1.30); POTASSIUM 4.2 MMOL/L (3.6-5.0); TOTAL PROTEIN 6.6 GM/DL (6.4-8.2)
== END ==
LOC: LAB 09:17
PROVIDERS: ATTEND Physician Assistant
DX: I25.10 Atherosclerotic heart disease of native coronary artery without angina pectoris (principal); I10 Essential (primary) hypertension; E78.2 Mixed hyperlipidemia
CPT/HCPCS: 36415; 80053; 80061

== ENCOUNTER → 2020-02-29 | Outpatient (CLI) | payer MEDICARE ==
[~2020-02-29] MED LIST changes: +ASPI-1238 PO; -ASPI-983 PO
--- NOTE | 2020-02-29 14:02 | Diagnostic Imaging Report ---
PROCEDURE: US right lower extremity venous. TECHNIQUE: Multiple real-time grayscale images were obtained over the right lower extremity in various projections. Additional spectral analysis and color Doppler duplex images were also obtained. INDICATION: Right leg pain. There is no evidence of right lower extremity DVT. Right lower extremity deep venous system shows normal compressibility with normal response to augmentation and Valsalva. No fluid collection or mass is detected. IMPRESSION: No evidence of right lower extremity DVT. Dictated by: Dictated on workstation # [id number]
== END ==
LOC: RAD 12:00
PROVIDERS: ATTEND Family Medicine
DX: M79.661 Pain in right lower leg (principal)

== ENCOUNTER → 2020-05-28 | Outpatient (CLI) | payer MEDICARE | LOC: CARD 12:45 | PROVIDERS: ATTEND Physician Assistant | DX: I25.10 Atherosclerotic heart disease of native coronary artery without angina pectoris (principal); I35.1 Nonrheumatic aortic (valve) insufficiency | CPT/HCPCS: 93306 ==

== ENCOUNTER 2020-06-23 02:05 | Emergency (ER) | payer MEDICARE ==
[2020-06-23] MEDS ORDERED: NITROGLYCERIN 2% OINT 1 GM UNIT DOSE PACKET ONE (02:28)
--- NOTE | 2020-06-23 02:28 | ED General ---
General Stated Complaint: HIGH BP;HIGH HEART RATE Source of Information: Patient (EXTREMELY POOR HISTORIAN AND IS UNABLE TO GIVE ANY RELEVANT INFORMATION ABOUT HIS CURRENT PROBLEM. PT IS ABLE TO GIVE COMPLETE PAST MEDICAL HISTORY WITHOUT PROBLEM. ) History of Present Illness Date Seen by Provider: Jun 23, 2020 Time Seen by Provider: 02:00 Initial Comments PT ARRIVES VIA POV FROM HOME PT UNABLE TO STATE WHY HE IS HERE / WHY HE CAME TO ER PT STATES HE GOT UP TO GO TO THE BATHROOM TONIGHT, ( STATES HE HAS PROSTATE PROBLEMS AND HE ALWAYS HAS TO GET UP TO URINATE SEVERAL TIMES DURING THE NIGHT) BUT UNABLE TO ELABORATE ANYTHING BEYOND STATES "I CAN'T EXPLAIN IT" PT DOES STATE THAT HIS BLOOD PRESSURE WAS HIGH--191/98, BUT CANNOT STATE WHY HE DECIDED TO TAKE HIS BLOOD PRESSURE OR IF HE WAS FEELING BAD OR HAVING PAIN, ETC. UNABLE TO GIVE ANY OTHER INFORMATION ABOUT WHY HE IS HERE, AND PT HAS NO ACTUAL COMPLAINTS OF ANY KIND. PT DENIES CHEST PAIN DENIES SHORTNESS OF BREATH DENIES NAUSEA/VOMITING DENIES HEADACHE DENIES DIZZINESS DENIES PAIN ANYWHERE DENIES PARESTHESIAS OR MOTOR DEFICITS OR DIFFICULTY TALKING OR SWALLOWING OR WALKING DENIES VISION CHANGES DENIES PALPITATIONS DENIES SYNCOPE DENIES FEVER / SWEATS/CHILLS DENIES COUGH/CONGESTION/SORE THROAT DENIES LOSS OF TASTE OR SMELL NO RECENT ILLNESS OR INJURY PT TOOK 3 NTG PRIOR TO ARRIVAL, BUT CANNOT STATE WHY HE TOOK THEM. AGAIN DENIES CHEST PAIN OR ANY OTHER SYMPTOMS RN SPOKE WITH PT'S DAUGHTER, AND SHE REPORTS THAT HE TOLD HER THAT HE TOOK NTG, BUT HE WAS UNABLE TO TELL HER WHY HE TOOK THEM EITHER. PT IS ABLE TO GIVE COMPLETE PAST MEDICAL HISTORY AND EVENTS OF TODAY, AND LIST H IS MEDICATIONS AND DOSES. PCP: DR. Stefanie JOHNSON SOLUTIONS ENGINEER: DR. CORTES Allergies and Home Medications Allergies Coded Allergies: No Known Allergies (Unverified Allergy, Unknown, 07/07/17) Home Medications Amlodipine Besylate 5 Mg Tablet, 5 MG PO DAILY, (Reported) Amlodipine Besylate 2.5 Mg Tablet, 2.5 MG PO DAILY Prescribed by: MARK HERNANDEZ on 06/23/20 0649 Aspirin 81 Mg Tablet.dr, 81 MG PO DAILY, (Reported) Atorvastatin Calcium 20 Mg Tablet, 20 MG PO HS, (Reported) Isosorbide Mononitrate 30 Mg Tab.er.24h, 30 MG PO 1400, (Reported) Levothyroxine Sodium 100 Mcg Tablet, 100 MCG PO DAILY, (Reported) Metoprolol Succinate 25 Mg Tab.er.24h, 25 MG PO 1400, (Reported) Multivitamin with Minerals 1 Each Tablet, 1 EACH PO DAILY, (Reported) Omeprazole 20 Mg Capsule.dr, 20 MG PO DAILY, (Reported) Terazosin HCl 10 Mg Capsule, 10 MG PO HS, (Reported) Patient Home Medication List Home Medication List Reviewed: Yes Review of Systems Review of Systems Constitutional: no symptoms reported (PER HPI) Past Ukndqbi-Ahkiff-Kqbkeu Hx Past Med/Social Hx: Reviewed and Corrections made Patient Social History 2nd Hand Smoke Exposure: No Recent Hopitalizations: No Immunizations Up To Date Tetanus Booster (TDap): Unknown PED Vaccines UTD: Yes Date of Influenza Vaccine: Apr 22, 2020 Past Medical History Surgeries: Yes (CARDIAC CATH) Cardiac, Coronary Stent Respiratory: No Cardiac: Yes (STENT X 1 TO LAD; CAROTID DISEASE. ) Coronary Artery Disease, Deep Vein Thrombosis, High Cholesterol, Hypertension Neurological: No Reproductive Disorders: No Genitourinary: Yes (STAGE 3 RENAL FAILURE--NO DIALYSIS) Prostate Problems, Renal Failure Gastrointestinal: Yes Gastroesophageal Reflux Musculoskeletal: Yes Chronic Back Pain Endocrine: Yes Hypothyroidsim HEENT: No Cancer: No Psychosocial: No Integumentary: No Blood Disorders: No Family Medical History No Pertinent Family Hx PAST SURGICAL HISTORY: -CARDIAC CATH WITH STENT TO LAD 2007 -CARDIAC CATH 2013--PATENT STENT, NO INTERVENTION -CARDIAC CATH [address] CORTES: CONCLUSION: 1. 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 Tortuous left coronary system with patent stent in the proximal LAD, mild disease distally nonobstructive disease 3. Normal left ventricular size with systolic function estimated ejection fraction 60 percent Physical Exam Vital Signs Vital Signs - First Documented 06/23/20 06/23/20 02:14 06:56 Temp 35.8 Pulse 78 Resp 18 B/P (MAP) 167/108 (127) Pulse Ox 97 O2 Delivery Room Air Capillary Refill : Height, Weight, BMI Height: 5'11.00" Weight: 203lbs. 0.0oz. 92.222266kj; 27.25 BMI Method:Stated General Appearance: No Apparent Distress, WD/WN, Other (AMBULATES INTO ER ON HIS OWN WITHOUT DIFFICULTY) HEENT: PERRL/EOMI Neck: Normal Inspection Respiratory: Normal Breath Sounds, No Accessory Muscle Use, No Respiratory Distress Cardiovascular: Regular Rate, Rhythm, No Edema, No JVD, No Murmur Gastrointestinal: Non Tender, Soft Extremity: Normal Inspection, No Pedal Edema Neurologic/Psychiatric: Alert, Oriented x3, No Motor/Sensory Deficits, Normal Mood/Affect, infection control manager II-XII Norm as Tested; No Abnormal Cerebellar Tests Skin: Normal Color, Warm/Dry Progress/Results/Core Measures Suspected Sepsis SIRS Temperature: Pulse: Respiratory Rate: Laboratory Tests 06/23/20 02:25: White Blood Count 5.9 Blood Pressure / Mean: Laboratory Tests 06/23/20 02:25: Creatinine 1.22, INR Comment 1.1, Platelet Count 147, Total Bilirubin 0.6 Results/Orders Lab Results Laboratory Tests Test 06/23/20 02:25 06/23/20 02:45 06/23/20 05:05 Range/Units White Blood Count 5.9 4.3-11.0 10^3/uL Red Blood Count 3.55 L 4.30-5.52 10^6/uL Hemoglobin 11.3 L 13.3-17.7 g/dL Hematocrit 34 L 40-54 % Mean Corpuscular Volume 96 80-99 fL Mean Corpuscular Hemoglobin 32 25-34 pg Mean Corpuscular Hemoglobin Concent 33 32-36 g/dL Red Cell Distribution Width 12.3 10.0-14.5 % Platelet Count 147 130-400 10^3/uL Mean Platelet Volume 10.3 9.0-12.2 fL Immature Granulocyte % (Auto) 0 % Neutrophils (%) (Auto) 61 42-75 % Lymphocytes (%) (Auto) 27 12-44 % Monocytes (%) (Auto) 7 0-12 % Eosinophils (%) (Auto) 4 0-10 % Basophils (%) (Auto) 0 0-10 % Neutrophils # (Auto) 3.6 1.8-7.8 10^3/uL Lymphocytes # (Auto) 1.6 1.0-4.0 10^3/uL Monocytes # (Auto) 0.4 0.0-1.0 10^3/uL Eosinophils # (Auto) 0.3 0.0-0.3 10^3/uL Basophils # (Auto) 0.0 0.0-0.1 10^3/uL Immature Granulocyte # (Auto) 0.0 0.0-0.1 10^3/uL Prothrombin Time 14.2 12.2-14.7 SEC INR Comment 1.1 0.8-1.4 Activated Partial Thromboplast Time 33 24-35 SEC Sodium Level 140 135-145 MMOL/L Potassium Level 3.8 3.6-5.0 MMOL/L Chloride Level 107 98-107 MMOL/L Carbon Dioxide Level 23 21-32 MMOL/L Anion Gap 10 5-14 MMOL/L Blood Urea Nitrogen 28 H 7-18 MG/DL Creatinine 1.22 0.60-1.30 MG/DL Estimat Glomerular Filtration Rate 56 BUN/Creatinine Ratio 23 Glucose Level 98 70-105 MG/DL Calcium Level 8.9 8.5-10.1 MG/DL Corrected Calcium 9.1 8.5-10.1 MG/DL Magnesium Level 2.2 1.6-2.4 MG/DL Total Bilirubin 0.6 0.1-1.0 MG/DL Aspartate Amino Transf (AST/SGOT) 26 5-34 U/L Alanine Aminotransferase (ALT/SGPT) 17 0-55 U/L Alkaline Phosphatase 75 40-136 U/L Total Creatine Kinase 144 30-200 U/L Creatine Kinase MB 2.4 <6.6 NG/ML Myoglobin 85.0 10.0-92.0 NG/ML Troponin I < 0.028 < 0.028 <0.028 NG/ML B-Type Natriuretic Peptide 35.9 <100.0 PG/ML Total Protein 6.5 6.4-8.2 GM/DL Albumin 3.7 3.2-4.5 GM/DL TSH [place] Testing 1.51 0.35-4.94 UIU/ML Urine Color YELLOW Urine Clarity CLEAR Urine pH 7.0 5-9 Urine Specific [place] 1.015 L 1.016-1.022 Urine Protein NEGATIVE NEGATIVE Urine Glucose (UA) NEGATIVE NEGATIVE Urine Ketones NEGATIVE NEGATIVE Urine Nitrite NEGATIVE NEGATIVE Urine Bilirubin NEGATIVE NEGATIVE Urine Urobilinogen 0.2 < = 1.0 MG/DL Urine Leukocyte Esterase NEGATIVE NEGATIVE Urine RBC (Auto) NEGATIVE NEGATIVE Urine RBC 2-5 H /HPF Urine WBC 0-2 /HPF Urine Squamous Epithelial Cells 0-2 /HPF Urine Crystals NONE /LPF Urine Bacteria NEGATIVE /HPF Urine Casts PRESENT /LPF Urine Hyaline Casts 0-2 H /LPF Urine Mucus NEGATIVE /LPF Urine Culture Indicated NO My Orders Orders - MARK HERNANDEZ DO Ed Iv/Invasive Line Start (06/23/20 02:17) Ekg Tracing (06/23/20 02:17) Monitor-Rhythm Ecg Trace Only (06/23/20 02:17) BNP (06/23/20 02:17) Cbc With Automated Diff (06/23/20 02:17) Comprehensive Metabolic Panel (06/23/20 02:17) Creatine Kinase (06/23/20 02:17) Creatine Kinase Mb (06/23/20 02:17) Magnesium (06/23/20 02:17) Protime With Inr (06/23/20 02:17) Partial Thromboplastin Time (06/23/20 02:17) Thyroid Analyzer (06/23/20 02:17) Myoglobin Serum (06/23/20 02:17) Troponin I (06/23/20 02:17) Chest 1 View, Ap/Pa Only (06/23/20 02:17) Ed Iv/Invasive Line Start (06/23/20 02:17) Aspirin Chewable Tablet (Baby Aspirin Ch (06/23/20 02:30) Nitroglycerin Ointment (Nitrobid Ointme (06/23/20 02:45) Nitroglycerin Ointment (Nitrobid Ointme (06/23/20 02:28) Ua Culture If Indicated (06/23/20 03:34) Troponin I (06/23/20 04:51) Ekg Tracing (06/23/20 04:51) Hydralazine Injection (Apresoline Inject (06/23/20 06:00) Medications Given in ED Vital Signs/I&O Capillary Refill : Progress Note : Progress Note GIVEN ASPIRIN AND NITROPASTE APPLIED FOR ELEVATED BLOOD PRESSURE--BP DOWN SIGNIFICANTLY TO 130'S/90'S, THEN GRADUALLY BEGAN TO ELEVATE HYDRALAZINE GIVEN AND BP DOWN TO 150'S/90'S PT HAD NO COMPLAINTS OF ANY KIND DURING ENTIRE ER STAY SPEECH CLEAR AND GAIT STEADY. PT FEELS COMFORTABLE GOING HOME, AND IS ANXIOUS TO GO HOME RN HAS UPDATED DAUGHTER THROUGHOUT ER STAY ON PT'S CONDITION, AND SHE FEELS COMFORTABLE TAKING HIM HOME. PT OBSERVED IN ER AND 3 HOUR TROPONIN DONE. EKG UNCHANGED, AND TROPONIN NEGATIVE. PT OBSERVED IN ER FOR 5 HOURS AND NO DETERIORATION IN PT'S CONDITION, NO NEW SYMPTOMS AND PT VOICED NO COMPLAINTS OF ANY KIND DURING ENTIRE ER STAY PT DOES STATE THAT OVER THE SUMMER, HIS AMLODIPINE WAS DISCONTINUED AND HIS METOPROLOL WAS DECREASED TO 25 MG DUE TO ORTHOSTATIC HYPOTENSION. STATES OVER THE LAST MONTH OR TWO, HIS BLOOD PRESSURE HAS BEEN HIGH, SO IN APRIL, METOPROLOL WAS INCREASED TO 50 MG DAILY. ECG Initial ECG Impression Date: Jun 23, 2020 Initial ECG Impression Time: 02:22 Initial ECG Rate: 81 Initial ECG Rhythm: Normal Sinus EKG : EKG Time: 05:00 Rate: 80 Rhythm: Normal Sinus ECG Comparisson: Unchanged Diagnostic Imaging Comments CXR--NO ACUTE PROCESS, PENDING RADIOLOGIST REVIEW Departure Impression Primary Impression: Uncontrolled hypertension Disposition: 01 HOME, SELF-CARE Condition: Stable Departure-Patient Inst. Referrals: NUZHAT CORTES MD, CHAD C MD (PCP/Family) Primary Care Physician Patient Instructions: DASH Diet, High Blood Pressure (DC) Add. Discharge Instructions: CONTINUE YOUR REGULAR MEDICATIONS PRESCRIBED FOLLOW UP WITH DR. CORTES THIS WEEK FOR FURTHER CARE--CALL ON WEDNESDAY TO SCHEDULE APPOINTMENT RETURN TO ER IF YOUR SYMPTOMS WORSEN Scripts Amlodipine Besylate (Amlodipine Besylate) 2.5 Mg Tablet 2.5 MG PO DAILY, #10 TAB Prov: MARK HERNANDEZ DO 06/23/20 MARK HERNANDEZ DO Jun 23, 2020 02:28
[2020-06-23] MEDS ORDERED: ASPIRIN 81 MG CHEW (CHILDREN'S ASA) PO ONE (02:30)
[2020-06-23 02:39] LABS: BASOPHILS % (AUTO) 0 % (0-10); EOSINOPHILS # (AUTO) 0.3 10^3/uL (0.0-0.3); EOSINOPHILS % (AUTO) 4 % (0-10); HEMATOCRIT 34 % (40-54); HEMOGLOBIN 11.3 g/dL (13.3-17.7); LYMPHOCYTES # (AUTO) 1.6 10^3/uL (1.0-4.0); LYMPHOCYTES % (AUTO) 27 % (12-44); MEAN CORPUSCULAR HEMOGLOBIN 32 pg (25-34); MEAN CORPUSCULAR HGB CONC 33 g/dL (32-36); MEAN CORPUSCULAR VOLUME 96 fL (80-99); MEAN PLATELET VOLUME 10.3 fL (9.0-12.2); MONOCYTES # (AUTO) 0.4 10^3/uL (0.0-1.0); MONOCYTES % (AUTO) 7 % (0-12); NEUTROPHILS # (AUTO) 3.6 10^3/uL (1.8-7.8); NEUTROPHILS % (AUTO) 61 % (42-75); PLATELET COUNT 147 10^3/uL (130-400); WHITE BLOOD COUNT 5.9 10^3/uL (4.3-11.0)
[2020-06-23] MEDS ORDERED: NITROGLYCERIN 2% OINT 1 GM UNIT DOSE PACKET TOP ONE (02:45)
[2020-06-23 02:47] LABS: ALBUMIN 3.7 GM/DL (3.2-4.5)
[2020-06-23 02:48] LABS: CHLORIDE 107 MMOL/L (98-107); INR 1.1 (0.8-1.4); POTASSIUM 3.8 MMOL/L (3.6-5.0); PROTHROMBIN TIME PATIENT 14.2 SEC (12.2-14.7); SODIUM 140 MMOL/L (135-145)
[2020-06-23 02:49] LABS: CALCIUM 8.9 MG/DL (8.5-10.1)
[2020-06-23 02:50] LABS: GLUCOSE 98 MG/DL (70-105); TOTAL PROTEIN 6.5 GM/DL (6.4-8.2)
[2020-06-23 02:51] LABS: CARBON DIOXIDE 23 MMOL/L (21-32)
[2020-06-23 02:52] LABS: BILIRUBIN,TOTAL 0.6 MG/DL (0.1-1.0)
[2020-06-23 02:54] LABS: ALKALINE PHOSPHATASE 75 U/L (40-136); CREATININE SERUM 1.22 MG/DL (0.60-1.30); GFR ESTIMATED 56
[2020-06-23 02:55] LABS: BUN/CREATININE RATIO 23
[2020-06-23 02:57] LABS: ALANINE AMINOTRANSFERASE 17 U/L (0-55); MAGNESIUM 2.2 MG/DL (1.6-2.4)
[2020-06-23 02:58] LABS: CREATINE KINASE 144 U/L (30-200)
[2020-06-23 03:05] LABS: CREATINE KINASE MB 2.4 NG/ML (<6.6)
[2020-06-23 03:17] LABS: TSH (THYROID ANALYZER) 1.51 UIU/ML (0.35-4.94)
[2020-06-23 03:39] LABS: BILIRUBIN,URINE NEGATIVE (NEGATIVE); CLARITY,URINE CLEAR; COLOR,URINE YELLOW; GLUCOSE, URINE (UA) NEGATIVE (NEGATIVE); KETONES,URINE NEGATIVE (NEGATIVE); LEUKOCYTE ESTERASE ,URINE NEGATIVE (NEGATIVE); NITRITE,URINE NEGATIVE (NEGATIVE); PROTEIN,URINE NEGATIVE (NEGATIVE)
[2020-06-23 03:48] LABS: BACTERIA,URINE NEGATIVE /HPF; HYALINE CASTS, URINE 0-2 /LPF; SQUAMOUS EPITHELIAL CELL,UR 0-2 /HPF; WBC,URINE 0-2 /HPF
[2020-06-23] MEDS ORDERED: HYDR-3922 PO (05:57)
[2020-06-23] MEDS ORDERED: AMLO2.5T4 PO ×2 (05:59→06:49)
[2020-06-23] MEDS ORDERED: hydrALAZINE (APESOLINE) 20 MG/ML VIAL IV ONE (06:00)
--- NOTE | 2020-06-23 06:45 | NUR ---
PT DAUGHTER ALIYAH UPDATED ON CONDITION AND TO BE DC'D. ALL DC INSTRUCTIONS REVIEWED.
--- NOTE | 2020-06-23 06:49 | Diagnostic Imaging Report ---
EXAMINATION: Chest radiograph, portable AP view. DATE: 06/23/2020 2:51 AM INDICATION: 89-year-old male, chest pain. COMPARISON: November 06, 2019. FINDINGS: Heart size and mediastinal contours are unchanged. There is no identified pneumothorax. There is no large pleural effusion. There is no identified focal airspace consolidation. IMPRESSION: No identified acute cardiopulmonary abnormality. Dictated by: Dictated on workstation # [id number]
[2020-06-23 06:56] VITALS: BP 159/95
== END 2020-06-23 06:58 | disposition home or self-care (01) ==
LOC: EDUNIT# 02:05 → ER 02:08
DX: I10 Essential (primary) hypertension (principal); E03.9 Hypothyroidism, unspecified; K21.9 Gastro-esophageal reflux disease without esophagitis; E78.00 Pure hypercholesterolemia, unspecified; I25.10 Atherosclerotic heart disease of native coronary artery without angina pectoris; Z79.890 Hormone replacement therapy; Z95.5 Presence of coronary angioplasty implant and graft; Z79.82 Long term (current) use of aspirin
CPT/HCPCS: 36415; 71045; 80053; 81000; 82550; 82553; 83735; 83874; 83880; 84443; 84484; 85025; 85610; 85730; 93005; 93041

== ENCOUNTER 2020-06-23 09:30 | Emergency (ER) | payer MEDICARE ==
[~2020-06-23] VITALS: Ht 182 cm; Wt 90.0 kg
[~2020-06-23 09:30] MED LIST changes: +AMLO2.5T4 PO; +HYDR-3922 PO
[2020-06-23 10:04] LABS: BASOPHILS % (AUTO) 0 % (0-10); EOSINOPHILS # (AUTO) 0.1 10^3/uL (0.0-0.3); EOSINOPHILS % (AUTO) 2 % (0-10); HEMATOCRIT 35 % (40-54); HEMOGLOBIN 11.8 g/dL (13.3-17.7); LYMPHOCYTES # (AUTO) 0.9 10^3/uL (1.0-4.0); LYMPHOCYTES % (AUTO) 16 % (12-44); MEAN CORPUSCULAR HEMOGLOBIN 32 pg (25-34); MEAN CORPUSCULAR HGB CONC 33 g/dL (32-36); MEAN CORPUSCULAR VOLUME 95 fL (80-99); MEAN PLATELET VOLUME 10.4 fL (9.0-12.2); MONOCYTES # (AUTO) 0.4 10^3/uL (0.0-1.0); MONOCYTES % (AUTO) 7 % (0-12); NEUTROPHILS # (AUTO) 4.2 10^3/uL (1.8-7.8); NEUTROPHILS % (AUTO) 75 % (42-75); PLATELET COUNT 154 10^3/uL (130-400); WHITE BLOOD COUNT 5.6 10^3/uL (4.3-11.0)
--- NOTE | 2020-06-23 10:04 | Diagnostic Imaging Report ---
PROCEDURE: CT head wo r/o stroke. TECHNIQUE: Multiple contiguous axial images were obtained through the brain without the use of intravenous contrast. Auto Exposure Controls were utilized during the CT exam to meet ALARA standards for radiation dose reduction. INDICATION: Stroke. COMPARISON: None. FINDINGS: Mixed density extra-axial fluid collection with convex borders overlying the left parietal and posterior frontal lobes measures up to 2.2 cm in maximum thickness. Slid-vi-luwod midline shift measures up to 0.2 cm. Moderate generalized cerebral and cerebellar parenchymal volume loss. Intracranial vascular calcifications. No CT evidence of a territorial infarction. Mild mucosal thickening in the floor of the maxillary sinuses. The mastoids are clear. Osseous structures are intact. IMPRESSION: Mixed attenuation extra-axial hematoma overlying the left parietal and posterior frontal convexities measures up to 2.2 cm in maximal thickness. This has concave borders and is suspicious for an epidural hemorrhage. Mild htck-qk-nwzzv midline shift measuring up to 0.5 cm. Findings discussed with Dr. Freire at 9:56 AM on 06/23/2020. Dictated by: Dictated on workstation # [id number]
--- NOTE | 2020-06-23 10:07 | ED Neurological Problem ---
General Chief Complaint: Neuro-Stroke Like Symptoms Stated Complaint: POSS STROKE Nursing Triage Note: BROGHT IN BY DAUGHTER WITH STROKE LIKE SX. PT WAS SEEN IN THE ER LAST NIGHT AND DISCHARGED THIS AM. DAUGHTER STATES ON THE WAY HOME AT 0645 HE WAS NOT GETTING OUT THE RIGHT WORDS. PT WENT TO SLEEP AND WHEN HE WOKE UP HE WAS WORSE. PT ARRIVED VIA WC. ALERT BUT CONFUSED WITH CONVERSATION AND NOT ABLE TO GET OUT THE WORDS FOR THINGS. Nursing Sepsis Screen: No Definite Risk Source: patient Exam Limitations: no limitations History of Present Illness Date Seen by Provider: May 24, 2020 Time Seen by Provider: 09:40 Initial Comments Patient presents ER by private conveyance with his daughter with chief complaint that he woke up sometime last night with some vague feelings of not well. He co uld not put his finger on any specific symptom. He was not having any confusion or difficulty speaking. His daughter ended up bringing him in last night and he was examined thoroughly by the ER physician automotive collision repair instructor but because of his vague symptoms the team could not correlate this to any findings. He was allowed to discharge home. He was answering questions and ambulating appropriately. As they were just about home at 0645 the daughter noticed she started having difficulty finding words asking her to turn the water up meaning that heat in the car. He has no history of trauma recently. No history of strokes. He is on aspirin 81 mg daily but does not take blood thinners. She notices confusion was getting worse so she returned him to the ER. The patient now has difficulty answering questions and word finding. The daughter remarks that his confusion is markedly worse than when she brought him to the ER the first time. Allergies and Home Medications Allergies Coded Allergies: No Known Allergies (Unverified Allergy, Unknown, 07/07/17) Home Medications Amlodipine Besylate 5 Mg Tablet, 5 MG PO DAILY, (Reported) Amlodipine Besylate 2.5 Mg Tablet, 2.5 MG PO DAILY Prescribed by: MARK HERNANDEZ on 06/23/20 0649 Aspirin 81 Mg Tablet.dr, 81 MG PO DAILY, (Reported) Atorvastatin Calcium 20 Mg Tablet, 20 MG PO HS, (Reported) Isosorbide Mononitrate 30 Mg Tab.er.24h, 30 MG PO 1400, (Reported) Levothyroxine Sodium 100 Mcg Tablet, 100 MCG PO DAILY, (Reported) Metoprolol Succinate 25 Mg Tab.er.24h, 25 MG PO 1400, (Reported) Multivitamin with Minerals 1 Each Tablet, 1 EACH PO DAILY, (Reported) Omeprazole 20 Mg Capsule.dr, 20 MG PO DAILY, (Reported) Terazosin HCl 10 Mg Capsule, 10 MG PO HS, (Reported) Patient Home Medication List Home Medication List Reviewed: Yes Review of Systems Review of Systems Constitutional: No chills, No diaphoresis Eyes: Denies Blindness, Denies Blurred Vision Ears, Nose, Mouth, Throat: denies ear pain, denies nose pain Respiratory: No cough, No short of breath Cardiovascular: No chest pain, No palpitations Gastrointestinal: No abdominal pain, No nausea Genitourinary: No discharge, No dysuria Musculoskeletal: No back pain, No joint pain Psychiatric/Neurological: See HPI All Other Systems Reviewed Negative Unless Noted: Yes Past Ennjngf-Bzqunh-Gcsvnf Hx Patient Social History Alcohol Use: Denies Use Smoking Status: Never a Smoker 2nd Hand Smoke Exposure: No Recent Infectious Disease Expo: No Recent Hopitalizations: No Immunizations Up To Date Tetanus Booster (TDap): Unknown PED Vaccines UTD: Yes Date of Influenza Vaccine: Apr 22, 2020 Past Medical History Surgeries: Yes (CARDIAC CATH) Cardiac, Coronary Stent Respiratory: No Cardiac: Yes (STENT X 1 TO LAD; CAROTID DISEASE. ) Coronary Artery Disease, Deep Vein Thrombosis, High Cholesterol, Hypertension Neurological: No Reproductive Disorders: No Genitourinary: Yes (STAGE 3 RENAL FAILURE--NO DIALYSIS) Prostate Problems, Renal Failure Gastrointestinal: Yes Gastroesophageal Reflux Musculoskeletal: Yes Chronic Back Pain Endocrine: Yes Hypothyroidsim HEENT: No Cancer: No Psychosocial: No Integumentary: No Blood Disorders: No Family Medical History No Pertinent Family Hx PAST SURGICAL HISTORY: -CARDIAC CATH WITH STENT TO LAD 2007 -CARDIAC CATH 2013--PATENT STENT, NO INTERVENTION -CARDIAC CATH [address] CORTES: CONCLUSION: 1. 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 Tortuous left coronary system with patent stent in the proximal LAD, mild disease distally nonobstructive disease 3. Normal left ventricular size with systolic function estimated ejection fraction 60 percent Physical Exam Vital Signs Vital Signs - First Documented 06/23/20 09:30 Temp 37.0 Pulse 109 Resp 16 B/P (MAP) 178/105 (129) Pulse Ox 96 O2 Delivery Room Air Capillary Refill : Less Than 3 Seconds Height, Weight, BMI Height: 5'11.00" Weight: 203lbs. 0.0oz. 92.045915xt; 27.00 BMI Method:Stated General Appearance: WD/WN, mild distress HEENT: PERRL/EOMI, normal ENT inspection, TMs normal, pharynx normal, other (Atraumatic head without tenderness, hematoma, ecchymosis, abrasion etc.) Neck: non-tender, full range of motion, supple, normal inspection Respiratory: chest non-tender, lungs clear, normal breath sounds, no respiratory distress, no accessory muscle use Cardiovascular: normal peripheral pulses, regular rate, rhythm Peripheral Pulses: 2+ Radial Pulses (R), 2+ Radial Pulses (L) Gastrointestinal: normal bowel sounds, non tender, soft Neurologic/Psychiatric: thrill performer II-XII nml as tested, no motor/sensory deficits, alert, other (Mildly anxious affect. Oriented to person but not place time or situation) Crainal Nerves: normal hearing, abnormal speech (Word searching, garbled language, difficulty answering questions) Motor/Sensory: no motor deficit, no sensory deficit Skin: normal color, warm/dry Stroke Onset of Symptoms Date of Onset of Symptoms: Jun 23, 2020 Time of Symptom Onset: 06:45 Onset of Symptoms: Yes Symptoms onset unknown: Yes NIH Stroke Scale Assessment Select: Initial Level of Consciousness: 0=Alert (0), Level of Consciousness- Questions: 1=Answers one question (1), LOC Commands: 0=Performs both tasks (0), Gaze: Normal (0), Visual Tran: 0=No visual loss (0), Facial Movement (Facial Paresis): 0=Normal symmetrical mnt (0), Motor Function-Arms Right: 0=No drift (0), Motor Function-Arms Left: 0=No drift (0), Motor Function-Legs Right: 0=No drift (0), Motor Function-Legs Left: 0=No drift (0), Limb Ataxia: 0=Absent (0), Sensory: 0=Normal:no loss (0), Best Language: 1=Mild to moderat aphasia (1), Dysarthria: 1=Mild to moderate loss (1), Extinction & Inattention: 0=No abnormality (0), Total: 3 Stroke Thrombolytic Exclusion Age 18 or Over: Yes Acute intenal hemorrhage: Yes History of CVA: No Uncontrolled Coagulation Defec: No Intracranial Hemorrhage: Yes Severe Hypertension: No GI or Bleed: No Subarachnoid Hemorrhage: No Intracranial Neoplasm/Aneurysm: No Oral Anticoagulants: No Surgery or Trauma: No Puncture of Non-Compressible V: No Recent CPR: No Diabetic Hemorrhagic Retinopat: No Organ Biopsy: No Recent Obstetric Delivery: No Glucose: No (115) Significant Hepatic Dysfunctio: No NIH Stoke Scale >22: No Bacterial Endocarditis: No Pericarditis: No Improving Symptoms: No Platelets: No TPA Contraindication: Yes (Intracranial hemorrhage) IV - TPa Received IV - TPa Procedure Performed?: No (Hemorrhagic stroke) Progress/Results/Core Measures Results/Orders Lab Results Laboratory Tests Test 06/23/20 09:58 06/23/20 10:03 06/23/20 10:25 Range/Units White Blood Count 5.6 4.3-11.0 10^3/uL Red Blood Count 3.74 L 4.30-5.52 10^6/uL Hemoglobin 11.8 L 13.3-17.7 g/dL Hematocrit 35 L 40-54 % Mean Corpuscular Volume 95 80-99 fL Mean Corpuscular Hemoglobin 32 25-34 pg Mean Corpuscular Hemoglobin Concent 33 32-36 g/dL Red Cell Distribution Width 12.3 10.0-14.5 % Platelet Count 154 130-400 10^3/uL Mean Platelet Volume 10.4 9.0-12.2 fL Immature Granulocyte % (Auto) 0 % Neutrophils (%) (Auto) 75 42-75 % Lymphocytes (%) (Auto) 16 12-44 % Monocytes (%) (Auto) 7 0-12 % Eosinophils (%) (Auto) 2 0-10 % Basophils (%) (Auto) 0 0-10 % Neutrophils # (Auto) 4.2 1.8-7.8 10^3/uL Lymphocytes # (Auto) 0.9 L 1.0-4.0 10^3/uL Monocytes # (Auto) 0.4 0.0-1.0 10^3/uL Eosinophils # (Auto) 0.1 0.0-0.3 10^3/uL Basophils # (Auto) 0.0 0.0-0.1 10^3/uL Immature Granulocyte # (Auto) 0.0 0.0-0.1 10^3/uL Prothrombin Time 13.9 12.2-14.7 SEC INR Comment 1.0 0.8-1.4 Activated Partial Thromboplast Time 31 24-35 SEC D-Dimer 1.56 H 0.00-0.49 UG/ML Sodium Level 139 135-145 MMOL/L Potassium Level 3.6 3.6-5.0 MMOL/L Chloride Level 107 98-107 MMOL/L Carbon Dioxide Level 21 21-32 MMOL/L Anion Gap 11 5-14 MMOL/L Blood Urea Nitrogen 24 H 7-18 MG/DL Creatinine 1.08 0.60-1.30 MG/DL Estimat Glomerular Filtration Rate > 60 BUN/Creatinine Ratio 22 Glucose Level 119 H 70-105 MG/DL Calcium Level 9.1 8.5-10.1 MG/DL Corrected Calcium 9.3 8.5-10.1 MG/DL Total Bilirubin 0.7 0.1-1.0 MG/DL Aspartate Amino Transf (AST/SGOT) 27 5-34 U/L Alanine Aminotransferase (ALT/SGPT) 16 0-55 U/L Alkaline Phosphatase 70 40-136 U/L Troponin I < 0.028 <0.028 NG/ML Total Protein 6.7 6.4-8.2 GM/DL Albumin 3.8 3.2-4.5 GM/DL Glucometer 115 H 70-110 MG/DL Urine Color YELLOW Urine Clarity CLEAR Urine pH 7.5 5-9 Urine Specific [place] 1.020 1.016-1.022 Urine Protein NEGATIVE NEGATIVE Urine Glucose (UA) NEGATIVE NEGATIVE Urine Ketones NEGATIVE NEGATIVE Urine Nitrite NEGATIVE NEGATIVE Urine Bilirubin NEGATIVE NEGATIVE Urine Urobilinogen 0.2 < = 1.0 MG/DL Urine Leukocyte Esterase NEGATIVE NEGATIVE Urine RBC (Auto) NEGATIVE NEGATIVE Urine RBC 2-5 H /HPF Urine WBC NONE /HPF Urine Squamous Epithelial Cells RARE /HPF Urine Crystals NONE /LPF Urine Bacteria NEGATIVE /HPF Urine Casts NONE /LPF Urine Mucus NEGATIVE /LPF Urine Culture Indicated NO My Orders Orders - ZAYDA FREIRE Cbc With Automated Diff (06/23/20 09:40) Protime With Inr (06/23/20 09:40) Partial Thromboplastin Time (06/23/20 09:40) Comprehensive Metabolic Panel (06/23/20 09:40) Fibrin Degradation Products (06/23/20 09:40) Troponin I (06/23/20 09:40) Ua Culture If Indicated (06/23/20 09:40) Catheter(Urinary) Insert & Ass 03,15 (06/23/20 09:40) Ekg Tracing (06/23/20 09:40) Accucheck Stat ONCE (06/23/20 09:40) Ed Iv/Invasive Line Start (06/23/20 09:40) Ed Iv/Invasive Line Start (06/23/20 09:40) Vital Signs Stroke Patient Q15M (06/23/20 09:40) Ct Head Wo-R/O Stroke (06/23/20 09:40) O2 (06/23/20 09:40) Intake & Output 06,14,22 (06/23/20 09:40) Monitor-Rhythm Ecg Trace Only (06/23/20 09:40) Dysphagia Screening Tool (06/23/20 09:40) Post Thrombolytic Adminstratio (06/23/20 09:40) Ns (Ivpb) (Sodium C... W/Nicardipine Iv (06/23/20 10:15) Hydralazine Injection (Apresoline Inject (06/23/20 10:30) Levetiracetam Injection (Keppra Injectio (06/23/20 10:30) Lorazepam Injection (Ativan Injection) (06/23/20 10:45) Ns (Ivpb) (Sodium C... W/Nicardipine Iv (06/23/20 12:00) Medications Given in ED Current Medications Medications Dose Ordered Sig/Vinh Route Start Time Stop Time Status Last Admin Dose Admin Hydralazine HCl 10 mg ONCE ONCE IV 06/23/20 10:30 06/23/20 10:31 DC 06/23/20 10:34 10 MG Levetiracetam 1000 mg/Sodium Chloride 110 ml @ 440 mls/hr ONCE ONCE IV 06/23/20 10:30 06/23/20 10:44 DC 06/23/20 10:43 440 MLS/HR Lorazepam 0.5 mg ONCE ONCE IVP 06/23/20 10:45 06/23/20 10:47 DC 06/23/20 10:48 0.5 MG Vital Signs/I&O 06/23/20 06/23/20 09:30 13:02 Temp 37.0 Pulse 109 105 Resp 16 16 B/P (MAP) 178/105 (129) 117/59 Pulse Ox 96 96 O2 Delivery Room Air Room Air Blood Pressure Mean: 129 Progress Progress Note #1: Time: 10:24 Progress Note Discussed the case with Dr. Elias, neurosurgery. He feels that this is a subdural bleed after he has reviewed the imaging. He thinks it is probably subacute and we should manage the blood pressure less than 160 and start the patient on Keppra as he suspects that confusion may be related to seizures. He does not think that this is a surgical case as it is old and too small. He is not as convinced of the half centimeter midline shift. He would recommend follow-up outpatient with his clinic. He would only repeat imaging if there were changes or some other diagnosis we are suspicious of. Again he suspects seizures related to the bleed are the cause of the mental status change. We we will give a dose of hydralazine to see if this gets his blood pressure under s ystolic 160. We will also give a gram of Keppra. Patient is having some anxiety and so half a milligram of Ativan IV will be gi sonal. We discussed the case with Dr. Macias local medicine team and she declined to admit citing the lack of any neurologic services locally. Progress Note #2: Time: 12:00 Progress Note Despite hydralazine the patient's blood pressure has gone back up. It went down to 1 30-1 40 systolic and now has had several measurements around 180 systolic. Start the nicardipine drip at 2.5 mg/h in an attempt to keep a goal of systolic blood pressure less than 160 mmHg. Patient is resting comfortably has no further neurologic deterioration. [facility] did just call back with room number. We are summoning EMS. Initial ECG Impression Date: Jun 23, 2020 Initial ECG Impression Time: 10:08 Initial ECG Rate: 101 Initial ECG Rhythm: S.Tach Initial ECG Intervals: QT (483) Initial ECG Impression: Normal, Nonspecific Changes Comment Normal sinus tachycardia without clinically relevant ST elevation or depression. Diagnostic Imaging Diagonstic Imaging: CT Plain Films/CT/US/NM/MRI: head Comments NAME: [facility] REC#: [id number] PT STATUS: REG ER : 1930 PHYSICIAN: ZAYDA FREIRE MD ADMIT DATE: 06/23/20/ER Draft Date of Exam:06/23/20 CT HEAD WO-R/O STROKE PROCEDURE: CT head wo r/o stroke. TECHNIQUE: Multiple contiguous axial images were obtained through the brain without the use of intravenous contrast. Auto Exposure Controls were utilized during the CT exam to meet ALARA standards for radiation dose reduction. INDICATION: Stroke. COMPARISON: None. FINDINGS: Mixed density extra-axial fluid collection with convex borders overlying the left parietal and posterior frontal lobes measures up to 2.2 cm in maximum thickness. Polp-ae-mqfjz midline shift measures up to 0.2 cm. Moderate generalized cerebral and cerebellar parenchymal volume loss. Intracranial vascular calcifications. No CT evidence of a territorial infarction. Mild mucosal thickening in the floor of the maxillary sinuses. The mastoids are clear. Osseous structures are intact. IMPRESSION: Mixed attenuation extra-axial hematoma overlying the left parietal and posterior frontal convexities measures up to 2.2 cm in maximal thickness. This has concave borders and is suspicious for an epidural hemorrhage. Mild cede-fp-dnouq midline shift measuring up to 0.5 cm. Findings discussed with Dr. Freire at 9:56 AM on 06/23/2020. Dictated on workstation # [id number] Dict: 06/23/20 0953 Trans: 06/23/20 1003 [facility] [id number] Interpreted by: LORENZA POWELL MD Electronically signed by: Reviewed: Reviewed by Me Departure Impression Primary Impression: Non-traumatic subdural hemorrhage Additional Impressions: Encephalopathy acute Focal seizures Disposition: XFER SHT-TRM HOSP Condition: Stable Transfer Transfer Reason: Exceeds level of care Time Spoke to Accepting Phy: 10:30 Transfer Progress Notes Discussed the case with Dr. Elias, neurosurgery and he agrees to admit the patient. He wants us to reiterate to family that there is no surgical intervention and he would probably discharge the patient tomorrow. Family is okay with this plan. [facility] will call back with a room assignment. Transfer Time: 13:02 Transfer Facility: [facility] Method of Transfer: EMS Departure-Patient Inst. Referrals: OKSANA JOHNSON MD (PCP/Family) Primary Care Physician Copy Copies To 1: OKSANA JOHNSON MD, TITUS J Jun 23, 2020 10:07
[2020-06-23] MEDS ORDERED: niCARdipine IV 50 MG in NS (IVPB) 230 ML IV SCH ×2 (10:15→12:00)
[2020-06-23 10:16] LABS: ALBUMIN 3.8 GM/DL (3.2-4.5); CHLORIDE 107 MMOL/L (98-107); POTASSIUM 3.6 MMOL/L (3.6-5.0); SODIUM 139 MMOL/L (135-145)
[2020-06-23 10:17] LABS: CALCIUM 9.1 MG/DL (8.5-10.1)
--- NOTE | 2020-06-23 10:17 | NUR ---
PHARMACY NOTIIFED OF NEEDING A IV.
[2020-06-23 10:18] LABS: GLUCOSE 119 MG/DL (70-105); TOTAL PROTEIN 6.7 GM/DL (6.4-8.2)
[2020-06-23 10:19] LABS: CARBON DIOXIDE 21 MMOL/L (21-32)
[2020-06-23 10:20] LABS: BILIRUBIN,TOTAL 0.7 MG/DL (0.1-1.0); FIBRIN DEGRADATION PRODUCTS 1.56 UG/ML (0.00-0.49); PROTHROMBIN TIME PATIENT 13.9 SEC (12.2-14.7)
[2020-06-23 10:22] LABS: ALKALINE PHOSPHATASE 70 U/L (40-136); CREATININE SERUM 1.08 MG/DL (0.60-1.30); GFR ESTIMATED > 60
[2020-06-23 10:23] LABS: BUN/CREATININE RATIO 22
[2020-06-23 10:25] LABS: ALANINE AMINOTRANSFERASE 16 U/L (0-55)
[2020-06-23] MEDS ORDERED: hydrALAZINE (APESOLINE) 20 MG/ML VIAL IV ONE (10:30)
[2020-06-23] MEDS ORDERED: LEVETIRACETAM INJECTION 1,000 MG in NS (IVPB) 100 ML IV ONE (10:30)
--- NOTE | 2020-06-23 10:30 | NUR ---
IN ROOM AT THIS TIME TALKING TO THE PT AND DAUGHTER.
[2020-06-23 10:32] LABS: BILIRUBIN,URINE NEGATIVE (NEGATIVE); CLARITY,URINE CLEAR; COLOR,URINE YELLOW; GLUCOSE, URINE (UA) NEGATIVE (NEGATIVE); KETONES,URINE NEGATIVE (NEGATIVE); LEUKOCYTE ESTERASE ,URINE NEGATIVE (NEGATIVE); NITRITE,URINE NEGATIVE (NEGATIVE); PH,URINE 7.5 (5-9); PROTEIN,URINE NEGATIVE (NEGATIVE)
[2020-06-23 10:40] LABS: BACTERIA,URINE NEGATIVE /HPF; SQUAMOUS EPITHELIAL CELL,UR RARE /HPF
[2020-06-23] MEDS ORDERED: LORazepam INJ 2 MG/ML (ATIVAN) VIAL IVP ONE (10:45)
--- NOTE | 2020-06-23 10:46 | NUR ---
IN TALKING WITH PT AND FAMILY. PT VERBALIZES HE IS ANXIOUS.
--- NOTE | 2020-06-23 11:32 | NUR ---
PT RESTING IN BED AT THIS TIME. DAUGHTER ABS.
--- NOTE | 2020-06-23 11:57 | NUR ---
IN ROOM WITH THE PT AT THIS TIME.
--- NOTE | 2020-06-23 12:30 | NUR ---
PT ACCIDENTLY PULLED IV OUT. IV RESERTED.
[2020-06-23 13:02] VITALS: BP 117/59
--- NOTE | 2020-06-23 13:02 | NUR ---
NOTIFIED OF BP
== END 2020-06-23 13:02 | disposition short-term general hospital (02) ==
LOC: EDUNIT# 09:30 → ER 09:31
DX: I62.00 Nontraumatic subdural hemorrhage, unspecified (principal); G93.40 Encephalopathy, unspecified; G40.89 Other seizures; I10 Essential (primary) hypertension; K21.9 Gastro-esophageal reflux disease without esophagitis; E78.00 Pure hypercholesterolemia, unspecified; E03.9 Hypothyroidism, unspecified; I25.10 Atherosclerotic heart disease of native coronary artery without angina pectoris; Z95.5 Presence of coronary angioplasty implant and graft; Z95.9 Presence of cardiac and vascular implant and graft, unspecified; Z79.890 Hormone replacement therapy; Z79.82 Long term (current) use of aspirin
CPT/HCPCS: 36415; 51702; 70450; 80053; 81000; 82962; 84484; 85025; 85379; 85610; 85730; 93005; 93041

== ENCOUNTER → 2020-07-17 | Outpatient (CLI) | payer MEDICARE ==
[~2020-07-17] VITALS: Ht 180 cm; Wt 87.0 kg
[~2020-07-17] MED LIST changes: +CATHETER FLUSH 10 ML SYR IV PRN; -ISOS30TA3 PO; +ISOS30TA82 PO; +REGADENOSON 0.4 MG/5 ML SYR (LEXISCAN) IV ONE
[2020-07-17 09:57] VITALS: BP 154/83
--- NOTE | 2020-07-17 13:31 | Cardiology Stress Test Report ---
Stress Test Report Date of Procedure/Referring: Date of Procedure: Jul 17, 2020 PCP Nuzhat Ruiz MD Admitting Physician Jerman Park MD Indications: Chest pain Baseline Heart Rate: 72 Baseline Blood Pressure: Blood Pressure Systolic: 154 Blood Pressure Diastolic: 83 Baseline Vitals Vital Signs Date Time Temp Pulse Resp B/P (MAP) Pulse Ox O2 Delivery O2 Flow Rate FiO2 07/17/20 09:57 93 18 154/83 (106) Baseline EKG: Baseline EKG: NSR Summary After explaining the procedure to the patient, he signed a consent and then brought to the stress nuclear laboratory. Patient received 0.4 mg Lexiscan for stress test, ECG, heart rate and blood pressure were monitored continuously. Resting and stress dose of radio tracer were injected, imaging was acquired and reviewed in short axis, horizontal long axis and vertical long axis views. TID: 0.95 SSS: 2 SDS: 0 EF: 57 1. Patient tolerated Lexiscan well 2. Diaphragmatic attenuation with typical male pattern, no significant ischemia or infarction on SPECT images 3. Normal left ventricular size, EF 57 percent NUZHAT RUIZ MD Jul 17, 2020 13:31
== END ==
LOC: CARD 08:30
PROVIDERS: ATTEND Internal Medicine Cardiovascular Disease
DX: R07.9 Chest pain, unspecified (principal)
CPT/HCPCS: 78452; 93017; A9502